=== PATIENT | female | born 1995 | race Caucasian/White ===

== ENCOUNTER 2023-04-17 13:24 | Outpatient (OUT) | payer OTHER, SELFPAY | END 2023-04-17 13:25 | disposition home or self-care (01) | PROVIDERS: PCP Nurse Practitioner; Visit Provider Obstetrics & Gynecology | DX: Z01.818 Encounter for other preprocedural examination (principal); Z30.2 Encounter for sterilization ==

== ENCOUNTER 2023-05-01 07:29 | Day surgery (SDC) | payer OTHER, SELFPAY ==
[2023-04-17 13:54] VITALS: BP 106/67; PULSE 85; RESP 14; TEMP 36.5; O2SAT 98; BMI 30.6
[2023-05-01] VITALS (13 sets, daily range): BP systolic 97–116; BP diastolic 63–87; PULSE 63–92; RESP 10–16; TEMP 36–36.3; O2SAT 88–98; BMI 31.0
[2023-05-01 07:43] LABS: Basophils Percent Auto 0.4 % (0.2-2.0); Eosinophils Absolute Auto 0.5 10^3/uL (0.0-0.7); Eosinophils Percent Auto 4.9 % (0.9-7.0); Hematocrit 40.5 % (36.0-48.0); Hemoglobin 13.2 g/dL (12.0-16.0); Immature Granulocytes Abs Auto 0.02 10^3/uL (0.00-0.03); Immature Granulocytes Pct Auto 0.2 % (0.0-0.5); Lymphocytes Percent Auto 21.8 % (20.5-60.0); Mean Corpuscular HGB Conc 32.6 g/dL (29.9-35.2); Mean Corpuscular Hemoglobin 28.8 pg (26.7-34.0); Mean Corpuscular Volume 88.4 fL (81.0-99.0); Mean Platelet Volume 9.9 fL (9.5-13.5); Monocytes Absolute Auto 0.7 10^3/uL (0.3-0.8); Monocytes Percent Auto 7.5 % (1.7-12.0); Neutrophils Absolute Auto 6.1 10^3/uL (1.4-6.5); Neutrophils Percent Auto 65.2 % (43.0-75.0); Platelet Count 382 10^3/uL (150-450); Red Blood Count 4.58 10^6/uL (4.20-5.40); Red Cell Distribution Width 13.2 % (11.0-15.0); White Blood Count 9.3 10^3/uL (4.0-11.0)
[2023-05-01] MEDS: LACTATED RINGER'S SOLUTION 1,000 ML 50 ML IV (07:55)
[2023-05-01 08:06] LABS: HCG Quantitative <1 mIU/mL
--- NOTE | 2023-05-01 10:42 | PM.ONB ---
Brief Operative Note Date of procedure: 05/01/23 Pre-op diagnosis: desires permenant sterilization Post-op diagnosis: same as pre-op Procedure: NAME OF PROCEDURE: bilateral laparoscopic salpingectomy PROCEDURE: The patient was taken back to the Operating Room where she was given general anesthesia without difficulty. She was then prepped and draped in the normal sterile fashion after being placed in a dorsal lithotomy position. A wet sponge stick was placed into the patient's vagina. Attention was then turned to the patient's abdomen, where a scalpel was used to make a small infraumbilical incision. The S retractors were then used to dissect the underlying layers until the fascia could be seen. The fascia was then grasped with Cindy clamps and tented up. A knife was then used to make a small incision to the fascia. The muscle was identified, at that time two sutures of #0 Vicryl on a GI needle was then used and placed through the fascia. the peritoneum was then identified and entered bluntly. The 10-4 Cece was then placed into the patient's abdomen. This was confirmed with direct visualization of the bowel, using the laparoscope. The patient's abdomen was then insufflated using approximately 4 liters of CO2 gas. Survey of the patient's abdomen demonstrated ovaries were normal in appearance as well as both tubes and uterus. A second and third rt and lt lateral robotic ports which were 8 mm in size, was then placed after the skin incision was made under direct visualization . robotic arms engaged. The patient's tube on the patient's right side was identified and tented up using a grasper, the ligasure apparatus was then used to come across the mesosalpingx from the fimbriated end to the insertion site at the uterus, the tube was then amputated and removed in its entirety. This was done on the contralateral side. The tubes were the removed from the patients abdomen. Excellent hemostasis was noted. The lateral ports were then moved under direct visualization with excellent hemostasis. All instruments were removed from the patient's abdomen. The fascia was closed using the #0 Vicryl on GI needle. The skin was closed using 4-0 Vicryl subcuticularly. All instruments were removed from the patient's vagina as well. The patient was taken out of the dorsal lithotomy position and placed in the supine position and taken to recovery in stable condition. Sponge, lap and needle counts were correct x2. Anesthesia: KAREN Surgeon: Sergey Salinas [employer] Developer: Hillary Ozuna Estimated blood loss (mL): 5 Pathology: other (tubes) Condition: stable Disposition: PACU
[2023-05-01] MEDS: LACTATED RINGER'S SOLUTION 1,000 ML 1000 ML IV (10:44)
[2023-05-01] MEDS: HYDROMORPHONE HCL 0.5 MG/0.5 ML SYRINGE IV ×2 (11:11→11:27)
--- NOTE | 2023-05-01 12:29 | PC.NURSE ---
Patient states pain is more annoying than painful. Patient is able to tolerate discomfort and is waiting to urinate before discharge.
[2023-05-01] MEDS: HYDROCODONE/ACET 5-325 MG TABLET 1 TAB PO (13:40)
--- NOTE | 2023-05-01 13:47 | PC.NURSE ---
Patient urinated at this time and is ready to go home.
== END 2023-05-01 13:45 | disposition home or self-care (01) ==
PROVIDERS: PCP Nurse Practitioner; Visit Provider Obstetrics & Gynecology
PROC: (CPT 840; principal; 2023-05-01 08:45)
DX: Z30.2 Encounter for sterilization (principal)
CPT/HCPCS: 58661; 36415; 84702; 85025; 88302; J1170; J2704

== ENCOUNTER 2024-01-25 16:36 | Emergency (ER) | payer OTHER, SELFPAY ==
[2024-01-25 16:40] VITALS: BP 120/67; PULSE 80; TEMP 37.1; O2SAT 98; BMI 31.1
--- NOTE | 2024-01-25 16:52 | ED.GENADUL1 ---
HPI HPI - General Adult General Chief complaint: Animal Bite Stated complaint: BITE LOWER EXTREMITY Time Seen by Provider: 01/25/24 16:41 Source: patient Mode of arrival: walk-in Limitations: no limitations History of Present Illness HPI narrative: Patient is a 28-year-old female presents to the emergency department for the evaluation of a possible insect bite to the left lower extremity that she noticed 3 days ago at home. She states she has had worsening redness, itching and pain of the area. No medications prior to arrival. She is not concerned for . No fevers, vomiting or abdominal cramping. She states her mother and her wanted her evaluated in the ER to rule out a spider bite. Related Data Home Medications ?Medication ?Instructions ?Recorded ?Confirmed fluoxetine 20 mg capsule 20 mg PO DAILY 04/17/23 04/17/23 levothyroxine 88 mcg capsule 88 mcg PO DAILY 04/17/23 01/25/24 pantoprazole 20 mg tablet,delayed 20 mg PO DAILY 04/17/23 04/17/23 release Previous Rx's ?Medication ?Instructions ?Recorded hydrocodone 5 mg-acetaminophen 325 1 tab PO Q4H PRN pain 4 days #16 05/01/23 mg tablet tabs ibuprofen 800 mg tablet 800 mg PO Q8H PRN pain 14 days #40 05/01/23 tabs cephalexin 500 mg capsule 500 mg PO Q8H 10 days #30 caps 01/25/24 hydroxyzine HCl 25 mg tablet 25 mg PO Q6H PRN itching #20 tabs 01/25/24 prednisone 20 mg tablet 60 mg (3 x 20 mg) PO DAILY 3 days 01/25/24 #9 tabs Allergies Allergy/AdvReac Type Severity Reaction Status Date / Time No Known Drug Allergies Allergy Verified 01/25/24 16:39 Opioid HPI Opioid Management Most Recent Opioid Data: Last Pain Scale 4 05/01/23 13:27 Review of Systems ROS Constitutional Denies: fever or chills Ears, nose, mouth, and throat Denies: throat pain or nasal congestion Respiratory Denies: shortness of breath Gastrointestinal Denies: nausea or vomiting Musculoskeletal Denies: back pain Integumentary/Breast Reports: redness, skin pain and skin tenderness; Denies: rash Hematologic/Lymphatic Denies: easy bruising or easy bleeding [facility] Medical History (Updated 01/25/24 @ 16:48 by MAURA Kramer) History of blood transfusion (2015) ?Z92.89 - Personal history of other medical treatment (ICD-10) Depression ?F32.A - Depression, unspecified (ICD-10) Anxiety ?F41.9 - Anxiety disorder, unspecified (ICD-10) COVID-19 ?U07.1 - COVID-19 (ICD-10) Asthma ?J45.909 - Unspecified asthma, uncomplicated (ICD-10) Migraine ?G43.909 - Migraine, unspecified, not intractable, without status migrainosus (ICD-10) Hiatal hernia ?K44.9 - Diaphragmatic hernia without obstruction or gangrene (ICD-10) Nausea ?R11.0 - Nausea (ICD-10) Vomiting ?R11.10 - Vomiting, unspecified (ICD-10) GERD (gastroesophageal reflux disease) ?K21.9 - Gastro-esophageal reflux disease without esophagitis (ICD-10) Hypothyroidism ?E03.9 - Hypothyroidism, unspecified (ICD-10) Menorrhagia ?N92.0 - Excessive and frequent menstruation with regular cycle (ICD-10) Dyspareunia Request for sterilization ?Z30.2 - Encounter for sterilization (ICD-10) Surgical History (Updated 04/17/23 @ 13:48 by Diane Sanchez NP) History of esophagogastroduodenoscopy (EGD) ?Z98.890 - Other specified postprocedural states (ICD-10) H/O oral surgery ?Z98.890 - Other specified postprocedural states (ICD-10) H/O oral surgery ?Z98.890 - Other specified postprocedural states (ICD-10) Family History (Updated 04/17/23 @ 13:48 by Diane Sanchez NP) Other Family history of DVT Family history of cervical cancer Family history of coronary artery disease Family history of diabetes mellitus Family history of heart disease Family history of hypertension Family history of myocardial infarction Family history of ovarian cancer Social History Within the past year, how often did you have a drink containing alcohol: monthly or less Smoking status: Never smoker Previous occupational history: Teacher aid Highest level of school completed/degree received: high school graduate Exam Narrative Exam Narrative: Gen.: Awake, alert, in no distress Head: Normocephalic, atraumatic ENT: Moist mucous membranes Respiratory: No respiratory distress Extremities: Moves extremities equally, faint blanching erythema on the medial aspect of the left leg with a central indurated area consistent with an insect bite. No fluctuance or abscess. No circumferential erythema or red streaking noted. Psych: Normal mood and affect Neuro: No focal neuro deficit Skin: Warm, dry, intact Constitutional Vital Signs, click to edit/add: Last Vital Signs Temp 98.8 F 01/25/24 16:40 Pulse 80 01/25/24 16:40 Resp 16 01/25/24 16:40 BP 120/67 01/25/24 16:40 Pulse Ox 98 01/25/24 16:40 O2 Del Method Room Air 01/25/24 16:40 Course Vital Signs Vital signs: Vital Signs Temperature 98.8 F 01/25/24 16:40 Pulse Rate 80 01/25/24 16:40 Respiratory Rate 16 01/25/24 16:40 Blood Pressure 120/67 01/25/24 16:40 Pulse Oximetry 98 01/25/24 16:40 Oxygen Delivery Method Room Air 01/25/24 16:40 Temperature 98.8 F 01/25/24 16:40 Pulse Rate 80 01/25/24 16:40 Respiratory Rate 16 01/25/24 16:40 Blood Pressure 120/67 01/25/24 16:40 Pulse Oximetry 98 01/25/24 16:40 Oxygen Delivery Method Room Air 01/25/24 16:40 Medical Decision Making [facility] Narrative Medical decision making narrative: Exam is consistent with a localized allergic reaction from an insect sting, although the patient states the redness is worsening so we will cover with Keflex as well as prednisone and hydroxyzine. Follow-up PCP and return to the ER if symptoms change or worsen SUPERVISED APC VISIT, PHYSICIAN ATTESTATION: Based on the medical record the care appears appropriate. ? Medical Records Medical records reviewed: Yes I reviewed the patient's medical records Discharge Plan Discharge Stand Alone Forms: Portal Instructions Chief Complaint: Animal Bite Clinical Impression: Insect bite Patient Disposition: Home, Self-Care Time of Disposition Decision: 16:48 Condition: Good Prescriptions / Home Meds: New prednisone 20 mg tablet 60 mg PO DAILY 3 Days Qty: 9 0RF cephalexin 500 mg capsule 500 mg PO Q8H 10 Days Qty: 30 0RF hydroxyzine HCl 25 mg tablet 25 mg PO Q6H PRN (Reason: itching) Qty: 20 0RF No Action fluoxetine 20 mg capsule 20 mg PO DAILY levothyroxine 88 mcg capsule 88 mcg PO DAILY pantoprazole 20 mg tablet,delayed release (DR/EC) 20 mg PO DAILY ibuprofen 800 mg tablet 800 mg PO Q8H PRN (Reason: pain) 14 Days Qty: 40 0RF hydrocodone-acetaminophen 5-325 mg tablet 1 tab PO Q4H PRN (Reason: pain) 4 Days Qty: 16 0RF Print Language: Yoruba Instructions: Insect Bite or Sting (ED) Referrals: TORITO BRYSON [Primary Care Provider] - 1 week
--- OUTSIDE RECORDS SUMMARY | 2024-01-25 17:00 | XMS_ITS | CCD ---
Author Organization [facility] Care Team Providers Care Prepleater Name Role Phone CHRISTOPHER Villa-BC Shonda Baird Emergency Provider JOSEPH Wagner Primary Care Provider Torito Wagner Primary Care Unavailable Shonda Villa Attending Unavailable Shonda Villa Admitting Unavailable TORITO WAGNER Primary Care Unavailable CLARI ., DR YOUNG Admitting Unavailable HAY ., DR YOUNG Attending Unavailable JENNIFER ., MAURA CARDENAS Consulting Unavailangel MONTAGUE ., DR YOUNG Consulting Unavailable TORITO WAGNER Primary Care Unavailable DARA ERNST Admitting Unavailable DARA ERNST Attending Unavailable DARA ERNST Consulting Unavailable TORITO WAGNER Primary Care Unavailable CLAUDIA AYALA Admitting Unavailable CLAUDIA AYALA Attending Unavailable PAY ., DR HARRIS Consulting Unavailable CLAUDIA AYALA Consulting Unavailable Medications Current Medications Medication Drug Class(es) Dates Sig (Normalized) Sig (Original) famotidine 40 mg oral tablet (1 source) Histamine-2 Receptor Antagonist Start: 10-31-2022 take 40 mg by mouth twice daily Famotidine Active 40 MG PO Twice daily October 31, 2022 12:00am promethazine hydrochloride 25 mg oral tablet (1 source) Phenothiazine Start: 10-31-2022 take 25 mg by mouth every six hours Promethazine Active 25 MG PO Q6H October 31, 2022 12:00am Problems Active Problems Problem Classification Problem Date Documented Date Episodic/Chronic Abdominal pain (1 source) Epigastric pain; Translations: [EPIGASTRIC PAIN] Onset: 11-04-2022 Episodic Contraceptive and procreative management (1 source) Presence of (intrauterine) contraceptive device; Translations: [PRESENCE IU CONTRACEPT DEVICE] Onset: 11-04-2022 Episodic Headache; including migraine (4 sources) Headache; including migraine; Translations: [HEADACHE UNSPECIFIED] Onset: 04-15-2022 Menopausal disorders (1 source) Hormone replacement therapy; Translations: [HORMONE REPLACEMENT THERAPY] Onset: 11-04-2022 Episodic Nausea and vomiting (5 sources) Nausea and vomiting; Translations: [Nausea with vomiting, unspecified] Onset: 10-31-2022 10-31-2022 Episodic Other aftercare (1 source) Other fpc (current) drug therapy; Translations: [OTH TOOLING ENGINEERING TECH CURRENT DRUG THERAPY] Onset: 11-04-2022 Episodic Residual codes; unclassified (1 source) Personal history of other specified conditions; Translations: [PERSONAL HISTORY OTH SPEC CONDITION] Onset: 11-04-2022 Episodic Substance-related disorders (1 source) Nicotine dependence, other tobacco product, uncomplicated; Translations: [NICOTINE DEPEND OTH TOB PROD UNCOMP] Onset: 11-04-2022 Chronic Unclassified (3 sources) LOW BACK PAIN, UNSPECIFIED; Translations: [LOW BACK PAIN, UNSPECIFIED] Onset: 07-02-2022 Unclassified (1 source) CONTACT W/AND (SUSP) EXPOS COVID-19; Translations: [CONTACT W/AND (SUSP) EXPOS COVID-19] Onset: 04-17-2022 Past or Other Problems Problem Classification Problem Date Documented Da te Episodic/Chronic Other upper respiratory infections (1 source) Acute upper respiratory infection, unspecified; Translations: [ACUTE UP RESPIRATORY INFECTION UNS] Onset: 04-17-2022 Episodic Unclassified (1 source) LOW BACK PAIN, UNSPECIFIED; Translations: [LOW BACK PAIN, UNSPECIFIED] Onset: 06-30-2022 Results Test Name Value Interpretation Reference Range Facility Alanine aminotransferase [En zymatic activity/volume] in Serum or PlasmaOrdered By: Shonda Villa on 10-31-2022 ALT [Catalytic activity/Vol] 12 U/L 7-52 [facility] Albumin [Mass/volume] in Ser um or Plasma by Bromocresol green (BCG) dye binding methoOrdered By: Shonda Villa on 10-31-2022 Albumin BCG dye [Mass/Vol] 4.8 g/dL 3.5-5.7 [facility] Alkaline phosphatase [Enzyma tic activity/volume] in Serum or PlasmaOrdered By: Shonda Waldronore on 10-31-2022 ALP [Catalytic activity/Vol] 62 U/L 34-104 [facility] Amphetamine Screen Ql (U)Ord ered By: Shonda Smithimore on 10-31-2022 Amphetamines Ql (U) Negative Negative [facility] Aspartate aminotransferase [ Enzymatic activity/volume] in Serum or PlasmaOrdered By: Shonda Bullimore on 10-31-2022 AST [Catalytic activity/Vol] 18 U/L 13-39 [facility] Automated epithelial cells c ount in urine sediment (number/area)Ordered By: Shonda Waldronore on 10-31-2022 Epithelial cells Auto (Urine sed) [#/Area] 5-9 [HPF] 0-2 [facility] Automated erythrocytes count in urine sediment (number/area)Ordered By: Shonda Waldronore on 10-31-2022 RBC Auto (Urine sed) [#/Area] None seen [HPF] 0-4 [facility] Automated leukocytes count i n urine sediment (number/area)Ordered By: Shonda Smithimore on 10-31-2022 WBC Auto (Urine sed) [#/Area] 1-2 [HPF] 0-4 [facility] Automated urine hyaline cast s count (number/volume)Ordered By: Shonda Waldronore on 10-31-2022 Hyaline casts Auto (U) [#/Vol] None seen [LPF] 0-1 [facility] Barbiturates [Presence] in U rine by Screen methodOrdered By: Shonda Bullimore on 10-31-2022 Barbiturates Screen Ql (U) Negative Negative [facility] Basophils Auto (Bld) [#/Vol] Ordered By: Shonda Waldronore on 10-31-2022 Basophils (Bld) [#/Vol] 0.0 10*3/uL 0.0-0.2 [facility] Basophils/100 WBC Auto (Bld) Ordered By: Shondaedin Simthimore on 10-31-2022 Basophils/100 WBC (Bld) 0.3 % . [facility] Benzodiazepines Screen Ql (U )Ordered By: Shonda Bullimore on 10-31-2022 Benzodiazepines Ql (U) Negative Negative [facility] Benzoylecgonine [Presence] i n Urine by Screen methodOrdered By: Shonda Bullimore on 10-31-2022 Benzoylecgonine Screen Ql (U) Negative Negative [facility] Bilirubin Test strip Ql (U)O rdered By: Shonda Smithimore on 10-31-2022 Bilirubin Ql (U) Negative Negative [facility] Bilirubin.total [Mass/volume ] in Serum or PlasmaOrdered By: Shonda Smithimore on 10-31-2022 Bilirubin [Mass/Vol] 0.6 mg/dL 0.3-1.0 [facility] CBC AUTO DIFFon 10-31-2022 BASO # 0.0 103/ul Normal 0.0-0.1 [facility] Comment on above: Performed By: #### C BC #### [facility] [address] [place] [address] Dr. Sirisha Ashraf Basophils/100 WBC (Bld) 0.4 % Normal 0.2-2.0 [facility] Comment on above: Performed By: #### C BC #### [facility] [address] [place] [address] Dr. Sirisha Ashraf EO # 0.2 103/ul Normal 0.0-0.7 [facility] Comment on above: Performed By: #### C BC #### [facility] [address] [address] [address] Sirisha Ashraf Eosinophils/100 WBC (Bld) 2.5 % Normal 0.9-7.0 [facility] Comment on above: Performed By: #### C BC #### [facility] [address] [place] [address] Dr. Sirisha Ashraf Erythrocyte distribution width (RBC) [Ratio] 13.4 % Normal 11.0-15.0 [facility] Comment on above: Performed By: #### C BC #### [facility] [address] [place] [address] Dr. Sirisha Ashraf Hematocrit (Bld) [Volume fraction] 44.1 % Normal 36.0-48.0 [facility] Comment on above: Performed By: #### C BC #### [facility] [address] [place] [address] Dr. Sirisha Ashraf Hemoglobin (Bld) [Mass/Vol] 14.2 g/dL Normal 12.0-16.0 [facility] Comment on above: Performed By: #### C BC #### [facility] [address] [place] [address] Dr. Sirisha Ashraf IG # 0.02 10e3/ul Normal 0.00-0.03 [facility] Comment on above: Performed By: #### C BC #### [facility] [address] [place] [address] Dr. Sirisha Ashraf IG % 0.2 % Normal 0.0-0.5 [facility] Comment on above: Performed By: #### C BC #### [facility] [address] [place] [address] Dr. Sirisha Ashraf LYMPH # 1.7 103/ul Normal 1.2-3.8 [facility] Comment on above: Performed By: #### C BC #### [facility] [address] [place] [address] Dr. Sirisha Ashraf Lymphocytes/100 WBC (Bld) 21.2 % Normal 20.5-60.0 [facility] Comment on above: Performed By: #### C BC #### [facility] [address] [place] [address] Dr. Sirisha Ashraf MANUAL DIFF REQ NO Normal [facility] Comment on above: Performed By: #### C BC #### [facility] [address] [place] [address] Dr. Sirisha Ashraf MCH (RBC) [Entitic mass] 28.4 pg Normal 26.7-34.0 [facility] Comment on above: Performed By: #### C BC #### [facility] [address] [place] [address] Dr. Sirisha Ashraf MCHC (RBC) [Mass/Vol] 32.2 g/dL Normal 29.9-35.2 [facility] Comment on above: Performed By: #### C BC #### [facility] [address] [address] [address] Sirisha Ashraf MCV (RBC) [Entitic vol] 88.2 fL Normal 81.0-99.0 [facility] Comment on above: Performed By: #### C BC #### [facility] [address] [address] [address] Sirisha Ashraf MONO # 0.6 103/ul Normal 0.3-0.8 [facility] Comment on above: Performed By: #### C BC #### [facility] [address] [address] [address] Sirisha Ashraf Monocytes/100 WBC (Bld) 7.3 % Normal 1.7-12.0 [facility] Comment on above: Performed By: #### C BC #### [facility] [address] [place] [address] Dr. Sirisha Ashraf NEUT # 5.5 103/ul Normal 1.4-6.5 [facility] Comment on above: Performed By: #### C BC #### [facility] [address] [place] [address] Dr. Sirisha Ashraf Neutrophils/100 WBC (Bld) 68.4 % Normal 43.0-75.0 [facility] Comment on above: Performed By: #### C BC #### [facility] [address] [address] [address] Sirisha Ashraf Platelet mean volume (Bld) [Entitic vol] 10.7 fL Normal 9.5-13.5 [facility] Comment on above: Performed By: #### C BC #### [facility] [address] [address] [address] Sirisha Ashraf PLT 373 103/ul Normal 150-450 [facility] Comment on above: Performed By: #### C BC #### [facility] [address] [address] [address] Sirisha Ashraf RBC 5.00 106/ul Normal 4.20-5.40 [facility] Comment on above: Performed By: #### C BC #### [facility] [address] [place], [place] [address] Dr. Sirisha Ashraf WBC 8.1 103/ul Normal 4.0-11.0 [facility] Comment on above: Performed By: #### C BC #### [facility] [address] [place], [place] [address] abdomen pelvis w conon CT abdomen pelvis w con [facility] [place] [address] [place] [address] CT Scan Report Signed Patient: Jillian Bocanegra MR#: [id number] : 1995 Acct:[id number] Age/Sex: 26 / F ADM Date: 10/31/22 Loc: ER Room: Type: [facility] ER Attending Dr: Copies to: VALENTINE Brown Ordering Provider: VALENTINE Brown Date of Service: 10/31/22 CT/CT abdomen pelvis w con: abd pain cramping vomiting CT ABDOMEN AND PELVIS WITH INTRAVENOUS CONTRAST: CLINICAL HISTORY: Abdominal cramping, nausea and vomiting COMPARISON: None TECHNIQUE: Spiral images were obtained through the abdomen and pelvis following the administration of 90 mL of intravenous Isovue-300. This CT exam was performed using one or more following dose reduction techniques: Automated exposure control, adjustment of the mA and/or kV according to patient size, or use of iterative reconstruction technique. FINDINGS: Limited cuts through the lung bases show a 9 mm left lower lobe. A small hiatal hernia is seen. The liver, spleen, pancreas and adrenal glands are unremarkable. No gallstones are identified. There are bilateral symmetric renal nephrograms with no evidence of hydronephrosis. There is no pathologic lymphadenopathy or ascites. There is a small umbilical hernia containing fat. There is No focal segmental small bowel dilatation or wall thickening is seen. There is mild stool at the ascending colon. The transverse and descending colon are under distended and there is apparent wall thickening. The bony structures are intact. Images through the pelvis show normal caliber small bowel loops. The distal colon is decompressed. No diverticular disease is seen. A normal appendix is visualized. There is a T-shaped IUD within the uterus. There are small ovarian follicles. There is no lymphadenopathy or free fluid. CT/CT abdomen pelvis w con IMPRESSION: INCIDENTAL LEFT LOWER LOBE PULMONARY NODULE. NO BOWEL OR URINARY TRACT OBSTRUCTION. NO ACUTE FINDINGS. Impression dictated by: Michelle Fleming M.D.10/31/2022 5:51 PM Dictation Location: [place] [address] Transcribed By: [facility] 10/31/221750 Dictated By: Michelle Fleming MD 10/31/221733 Signed By: 10/31/22 175 Normal [facility] Calcium [Mass/volume] in Ser um or PlasmaOrdered By: Shonda Villa on 10-31-2022 Calcium [Mass/Vol] 9.3 mg/dL 8.6-10.3 [facility] Cannabinoids [Presence] in U rine by Screen methodOrdered By: Shonda Villa on 10-31-2022 Cannabinoids Screen Ql (U) Positive Negative [facility] Comment on above: These are unconfirme d results and should not be used for legal purposes. Drug Cut-Off Concentration: AMPH 1000 ng/mL TITUS 200 ng/mL OLIVIA 200 ng/mL COCM 300 ng/mL OP 300 ng/mL PCP 25 ng/mL THC 20 ng/mL Carbon dioxide, total [Moles /volume] in Serum or PlasmaOrdered By: Shonda Villa on 10-31-2022 CO2 [Moles/Vol] 24.0 mmol/L 21.0-31.0 [facility] Chloride [Moles/volume] in S ben[place] or PlasmaOrdered By: Shonda Villa on 10-31-2022 Chloride [Moles/Vol] 105 mmol/L 98-107 [facility] Choriogonadotropin.beta subu nit [Units/volume] in Serum or PlasmaOrdered By: Shonda Villa on 10-31-2022 HCG.beta subunit Qn Negative [facility] Color Auto (U)Ordered By: Gi xavier Villa on 10-31-2022 Color (U) Yellow Yellow [facility] Complete Blood Count Auto Di ffon 10-31-2022 Basophils (Bld) [#/Vol] 0.0 10*3/uL Normal 0.0-0.2 [facility] Comment on above: Result Comment: PERF ORMED BY: [place] [address] PATHOLOGIST [facility] MELVI STRONG M.D. Performed By: #### C MP, CBC #### [facility] [address] [place] [address] Basophils/100 WBC (Bld) 0.3 % Normal . [facility] Comment on above: Performed By: #### C MP, CBC #### [facility] [address] [place] [address] Eosinophils (Bld) [#/Vol] 0.0 10*3/uL Normal 0.0-0.45 [facility] Comment on above: Performed By: #### C MP, CBC #### [address] Eosinophils/100 WBC (Bld) 0.0 % Normal . [facility] Comment on above: Performed By: #### C MP, CBC #### [address] Erythrocyte distribution width (RBC) [Ratio] 13.4 % Normal 11.9-15.3 [facility] Comment on above: Performed By: #### C MP, CBC #### [address] Hematocrit (Bld) [Volume fraction] 39.1 % Normal 34.0-46.4 [facility] Comment on above: Performed By: #### C MP, CBC #### [place] [address] [place] Hemoglobin (Bld) [Mass/Vol] 12.8 g/dL Normal 11.8-15.4 [facility] Comment on above: Performed By: #### C MP, CBC #### [facility] [address] [place] [address] [place] Lymphocytes (Bld) [#/Vol] 0.9 10*3/uL Low 1.00-4.8 [facility] Comment on above: Performed By: #### C MP, CBC #### [place] [address] [place] Lymphocytes/100 WBC (Bld) 6.3 % Normal . [facility] Comment on above: Performed By: #### C MP, CBC #### [address] MCH (RBC) [Entitic mass] 28.1 pg Normal 24.7-34.3 [facility] Comment on above: Performed By: #### C MP, CBC #### [address] MCV (RBC) [Entitic vol] 85.6 fL Normal 80-100 [facility] Comment on above: Performed By: #### C MP, CBC #### [address] Mean Corpuscular HGB Conc 32.8 g/dL Normal 32.0-35.0 [facility] Comment on above: Performed By: #### C MP, CBC #### [place] [address] [place] Monocytes (Bld) [#/Vol] 0.4 10*3/uL Normal 0.0-0.8 [facility] Comment on above: Performed By: #### C MP, CBC #### [address] Monocytes/100 WBC (Bld) 16.94 % Normal 0.00-20.00 [facility] Comment on above: Performed By: #### C MP, CBC #### [place] [address] [place] Monocytes/100 WBC (Bld) 2.7 % Normal . [facility] Comment on above: Performed By: #### C MP, CBC #### [address] Neutrophils (Bld) [#/Vol] 13.0 10*3/uL High 1.8-7.7 [facility] Comment on above: Performed By: #### C MP, CBC #### [address] [place] [address] [place] Neutrophils/100 WBC (Bld) 90.7 % Normal . [facility] Comment on above: Performed By: #### C MP, CBC #### [facility] [address] NRBC% 0.0 /100{WBC} Normal 0-0.5 [facility] Comment on above: Performed By: #### C MP, CBC #### [address] Platelet mean volume (Bld) [Entitic vol] 8.8 fL Normal 6.3-10.7 [facility] Comment on above: Performed By: #### C MP, CBC #### [address] Platelets (Bld) [#/Vol] 341 10*3/uL Normal 150-450 [facility] Comment on above: Performed By: #### C MP, CBC #### [address] RBC (Bld) [#/Vol] 4.56 10*6/uL Normal 3.60-5.00 [facility] Comment on above: Performed By: #### C MP, CBC #### [address] WBC (Bld) [#/Vol] 14.4 10*3/uL High 3.8-11.6 [facility] Comment on above: Performed By: #### C MP, CBC #### [address] Comprehensive Metabolic Pane marcelino 10-31-2022 Albumin [Mass/Vol] 4.8 g/dL Normal 3.5-5.7 [facility] Comment on above: Performed By: #### C MP, CBC #### [address] Albumin/Globulin [Mass ratio] 1.5 {ratio} Normal [facility] Comment on above: Performed By: #### C MP, CBC #### [facility] [address] ALP [Catalytic activity/Vol] 62 U/L Normal 34-104 [facility] Comment on above: Performed By: #### C MP, CBC #### [facility] [address] ALT [Catalytic activity/Vol] 12 U/L Normal 7-52 [facility] Comment on above: Performed By: #### C MP, CBC #### [address] Anion gap [Moles/Vol] 14.8 mmol/L Normal 6.0-15.0 [facility] Comment on above: Performed By: #### C MP, CBC #### [address] AST [Catalytic activity/Vol] 18 U/L Normal 13-39 [facility] Comment on above: Performed By: #### C MP, CBC #### [address] Bilirubin [Mass/Vol] 0.6 mg/dL Normal 0.3-1.0 [facility] Comment on above: Performed By: #### C MP, CBC #### [address] Calcium [Mass/Vol] 9.3 mg/dL Normal 8.6-10.3 [facility] Comment on above: Performed By: #### C MP, CBC #### [address] Chloride [Moles/Vol] 105 mmol/L Normal 98-107 [facility] Comment on above: Performed By: #### C MP, CBC #### [address] CO2 [Moles/Vol] 24.0 mmol/L Normal 21.0-31.0 [facility] Comment on above: Performed By: #### C MP, CBC #### [address] Creatinine [Mass/Vol] 0.75 mg/dL Normal 0.60-1.20 [facility] Comment on above: Performed By: #### C MP, CBC #### [facility] [address] [place] [address] [place] Creatinine Clr Calc Pharmacy 110.19 Normal [facility] Comment on above: Result Comment: PERF ORMED BY: [facility] [address] [place] [address] PATHOLOGIST [facility] MELVI STRONG M.D. Performed By: #### C MP, CBC #### [facility] [address] [place] [address] [place] GFR/1.73 sq M.predicted MDRD (S/P/Bld) [Vol rate/Area] mL/min/{1.73_m2} Normal [facility] Comment on above: Performed By: #### C MP, CBC #### [facility] [address] Globulin (S) [Mass/Vol] 3.3 g/dL Normal [facility] Comment on above: Performed By: #### C MP, CBC #### [facility] [address] Glucose [Mass/Vol] 113 mg/dL High 70-100 [facility] Comment on above: Result Comment: [facility] Glucose Reference Range is dependent on time and content of last meal. Glucose of more than 200 mg/dL in a nonstressed, ambulatory subject supports the diagnosis of Diabetes Mellitus. ADA recommended reference range Performed By: #### C MP, CBC #### [facility] [address] Potassium [Moles/Vol] 3.8 mmol/L Normal 3.5-5.1 [facility] Comment on above: Performed By: #### C MP, CBC #### [facility] [address] Protein [Mass/Vol] 8.1 g/dL Normal 6.4-8.9 [facility] Comment on above: Performed By: #### C MP, CBC #### [facility] [address] [place] [address] [place] Sodium [Moles/Vol] 140 mmol/L Normal 136-145 [facility] Comment on above: Performed By: #### C MP, CBC #### [facility] [address] Urea nitrogen [Mass/Vol] 8 mg/dL Normal 7-25 [facility] Comment on above: Performed By: #### C MP, CBC #### [facility] [address] Creatinine [Mass/volume] in Serum or PlasmaOrdered By: Shonda Villa on 10-31-2022 Creatinine [Mass/Vol] 0.75 mg/dL 0.60-1.20 [facility] Dipstick and Microscopicon 0 10-31-2022 Appearance (U) Clear Normal Clear [facility] Comment on above: Order Comment: Name Collection Type:: Voided Performed By: #### A DDONUAPLUS, UHCG, URDS #### [address] Bacteria,Urine 1+ High None Seen [facility] Comment on above: Order Comment: Name Collection Type:: Voided Performed By: #### A DDONUAPLUS, UHCG, URDS #### [place] [address] [place] Bilirubin,Urine Negative Normal Negative [facility] Comment on above: Order Comment: Name Collection Type:: Voided Performed By: #### A DDONUAPLUS, UHCG, URDS #### [facility] [address] [place] [address] [place] Color (U) Yellow Normal Yellow [facility] Comment on above: Order Comment: Name Collection Type:: Voided Performed By: #### A DDONUAPLUS, UHCG, URDS #### [facility] [address] [place] [address] [place] Glucose Ql (U) Normal Normal Normal [facility] Comment on above: Order Comment: Name Collection Type:: Voided Performed By: #### A DDONUAPLUS, UHCG, URDS #### [facility] [address] [place] [address] Hyaline Casts,Urine None Seen Normal 0-1 [facility] Comment on above: Order Comment: Name Collection Type:: Voided Performed By: #### A DDONUAPLUS, UHCG, URDS #### [facility] [address] [place] [address] Ketones Ql (U) 4+ High Negative [facility] Comment on above: Order Comment: Name Collection Type:: Voided Performed By: #### A DDONUAPLUS, UHCG, URDS #### [address] Leukocyte esterase Test strip Ql (U) 1+ High Negative [facility] Comment on above: Order Comment: Name Collection Type:: Voided Performed By: #### A DDONUAPLUS, UHCG, URDS #### [address] Mucus,Urine 2+ Critically abnormal [facility] Comment on above: Order Comment: Name Collection Type:: Voided Performed By: #### A DDONUAPLUS, UHCG, URDS #### [address] Nitrite,Urine Negative Normal Negative [facility] Comment on above: Order Comment: Name Collection Type:: Voided Performed By: #### A DDONUAPLUS, UHCG, URDS #### [facility] [address] [place] [address] Occult Blood,Urine Negative Normal Negative [facility] Comment on above: Order Comment: Name Collection Type:: Voided Performed By: #### A DDONUAPLUS, UHCG, URDS #### [address] pH (U) 8.0 [pH] Normal 5.0-9.0 [facility] Comment on above: Order Comment: Name Collection Type:: Voided Performed By: #### A DDONUAPLUS, UHCG, URDS #### [address] [place] [address] [place] Protein (U) [Mass/Vol] 30 mg/dL High Negative [facility] Comment on above: Order Comment: Name Collection Type:: Voided Performed By: #### A DDONUAPLUS, UHCG, URDS #### [address] RBC,Urine None Seen Normal 0-4 [facility] Comment on above: Order Comment: Name Collection Type:: Voided Performed By: #### A DDONUAPLUS, UHCG, URDS #### [address] Renal Epithelial Cells,Urine None Seen Normal 0-1 [facility] Comment on above: Order Comment: Name Collection Type:: Voided Performed By: #### A DDONUAPLUS, UHCG, URDS #### [address] Specificy Bruno,Urine 1.030 Normal 1.001-1.030 [facility] Comment on above: Order Comment: Name Collection Type:: Voided Performed By: #### A DDONUAPLUS, UHCG, URDS #### [address] Squamous Epithelial Cell,Urine 5-9 High 0-2 [facility] Comment on above: Order Comment: Name Collection Type:: Voided Performed By: #### A DDONUAPLUS, UHCG, URDS #### [address] Urobilinogen,Urine Normal Normal Normal [facility] Comment on above: Order Comment: Name Collection Type:: Voided Performed By: #### A DDONUAPLUS, UHCG, URDS #### [address] WBC,Urine 1-2 Normal 0-4 [facility] Comment on above: Order Comment: Name Collection Type:: Voided Performed By: #### A DDONUAPLUS, UHCG, URDS #### [address] [place] [address] [place] Drug Screen,Urineon 11-01-19 Amphetamine Screen,Urine Negative Normal Negative [facility] Comment on above: Performed By: #### A DDONUAPLUS, UHCG, URDS #### [place] [address] [place] Barbiturate Screen,Urine Negative Normal Negative [facility] Comment on above: Performed By: #### A DDONUAPLUS, UHCG, URDS #### [place] [address] [place] Benzodiazepines Screen,Urine Negative Normal Negative [facility] Comment on above: Performed By: #### A DDONUAPLUS, UHCG, URDS #### [address] Cannabinoid Screen,Urine Positive High Negative [facility] Comment on above: Result Comment: Thes e are unconfirmed results and should not be used for legal purposes. Drug Cut-Off Concentration: AMPH 1000 ng/mL TITUS 200 ng/mL OLIVIA 200 ng/mL COCM 300 ng/mL OP 300 ng/mL PCP 25 ng/mL THC 20 ng/mL PERFORMED BY: [place] [address] PATHOLOGIST [facility] MELVI STRONG M.D. Performed By: #### A DDONUAPLUS, UHCG, URDS #### [place] [address] [place] Cocaine Screen,Urine Negative Normal Negative [facility] Comment on above: Performed By: #### A DDONUAPLUS, UHCG, URDS #### [place] [address] [place] Opiate Screen,Urine Negative Normal Negative [facility] Comment on above: Performed By: #### A DDONUAPLUS, UHCG, URDS #### [place] [address] [place] Phencyclidine Screen,Urine Negative Normal Negative [facility] Comment on above: Performed By: #### A DDONUAPLUS, UHCG, URDS #### [facility] [address] Eosinophils Auto (Bld) [#/Vo l]Ordered By: Shonda Allen on 10-31-2022 Eosinophils (Bld) [#/Vol] 0.0 10*3/uL 0.0-0.45 [facility] Eosinophils/100 WBC Auto (Bl d)Ordered By: Shondaedin Waldronore on 10-31-2022 Eosinophils/100 WBC (Bld) 0.0 % . [facility] Erythrocyte distribution wid th Auto (RBC) [Ratio]Ordered By: [facility] on 10-31-2022 Erythrocyte distribution width (RBC) [Ratio] 13.4 % 11.9-15.3 [facility] Globulin Calc (S) [Mass/Vol] Ordered By: [facility] on 10-31-2022 Globulin (S) [Mass/Vol] 3.3 g/dL [facility] Glucose [Mass/volume] in Ser um or PlasmaOrdered By: [facility] on 10-31-2022 Glucose [Mass/Vol] 113 mg/dL 70-100 [facility] Comment on above: ADA recommended refe rence rangeRandom Glucose Reference Range is dependent on time and content of last meal. Glucose of more than 200 mg/dL in a nonstressed, ambulatory subject supports the diagnosis of Diabetes Mellitus. HCG ( test) IA.rapi d Ql (U)Ordered By: [facility] on 10-31-2022 HCG ( test) Ql (U) Negative [facility] HCG,Qualitative Serumon 10-12 HCG,Qualitative Serum Negative Normal [facility] Comment on above: Result Comment: PERF ORMED BY: [place] [address] PATHOLOGIST [facility] MELVI STRONG M.D. Performed By: #### H CGQUAL #### [facility] [address] HCG,Urineon 10-31-2022 Beta HCG ( test) Ql (U) Negative Normal [facility] Comment on above: Order Comment: Name Collection Type:: Voided Result Comment: PERF ORMED BY: [facility] [address] [place] [address] PATHOLOGIST [facility] MELVI STRONG M.D. Performed By: #### A PATRICIA, CG, URDS #### [facility] [address] Hematocrit Auto (Bld) [Volum e fraction]Ordered By: Shonda Bullimore on 10-31-2022 Hematocrit (Bld) [Volume fraction] 39.1 % 34.0-46.4 [facility] Hemoglobin [Mass/volume] in BloodOrdered By: Shonda Bullimore on 10-31-2022 Hemoglobin (Bld) [Mass/Vol] 12.8 g/dL 11.8-15.4 [facility] Ketones Auto test strip (U) [Mass/Vol]Ordered By: Shonda Bullimore on 10-31-2022 Ketones (U) [Mass/Vol] 4+ Negative [facility] LIPASEon 10-31-2022 Lipase [Catalytic activity/Vol] 118.0 U/L Normal 73.0-393.0 [facility] Comment on above: Performed By: #### C MP, LIPA #### [facility] [address] [place] [address] Dr. Sirisha Ashraf Leukocytes [#/volume] correc maite for nucleated erythrocytes in Blood by Automated counOrdered By: Shonda Bullimore on 10-31-2022 WBC corrected for nucl RBC Auto (Bld) [#/Vol] 14.4 10*3/uL 3.8-11.6 [facility] Lymphocytes Auto (Bld) [#/Vo l]Ordered By: Shonda Bullimore on 10-31-2022 Lymphocytes (Bld) [#/Vol] 0.9 10*3/uL 1.00-4.8 [facility] Lymphocytes/100 WBC Auto (Bl d)Ordered By: Shonda Bullimore on 10-31-2022 Lymphocytes/100 WBC (Bld) 6.3 % . [facility] MCH Auto (RBC) [Entitic mass ]Ordered By: Shonda Bullimore on 10-31-2022 MCH (RBC) [Entitic mass] 28.1 pg 24.7-34.3 [facility] MCHC Auto (RBC) [Mass/Vol]Or dered By: Shonda Bullimore on 10-31-2022 MCHC (RBC) [Mass/Vol] 32.8 g/dL 32.0-35.0 [facility] MCV Auto (RBC) [Entitic vol] Ordered By: Shonda Bullimore on 10-31-2022 MCV (RBC) [Entitic vol] 85.6 fL 80-100 [facility] Monocyte distribution width [Entitic volume] in Blood by AutomatedOrdered By: Shonda Smithimore on 10-31-2022 Monocyte distribution width Auto (Bld) [Entitic vol] 16.94 % 0.00-20.00 [facility] Monocytes Auto (Bld) [#/Vol] Ordered By: Shonda Smithimore on 10-31-2022 Monocytes (Bld) [#/Vol] 0.4 10*3/uL 0.0-0.8 [facility] Monocytes/100 WBC Auto (Bld) Ordered By: Shonda Bullimore on 10-31-2022 Monocytes/100 WBC (Bld) 2.7 % . [facility] Mucus LM Ql (Urine sed)Order ed By: Shonda Bullimore on 10-31-2022 Mucus Ql (Urine sed) 2+ [LPF] [facility] Neutrophils Auto (Bld) [#/Vo l]Ordered By: Shonda Bullimore on 10-31-2022 Neutrophils (Bld) [#/Vol] 13.0 10*3/uL 1.8-7.7 [facility] Neutrophils/100 WBC Auto (Bl d)Ordered By: Shondaedin Smithimore on 10-31-2022 Neutrophils/100 WBC (Bld) 90.7 % . [facility] Nitrite Test strip Ql (U)Ord ered By: Shonda Villa on 10-31-2022 Nitrite Ql (U) Negative Negative [facility] No Panel InformationOrdered By: Shonda Smithimevelina on 10-31-2022 Estimated GFR (CKD-EPI) > 60.0 mL/Min [facility] Creatinine Clearance (Chem 110.19 [facility] Nucleated erythrocytes [Pres ence] in Blood by Automated countOrdered By: Shonda Villa on 10-31-2022 Nucleated RBC Auto Ql (Bld) 0.0 /100{WBC} 0-0.5 [facility] Opiates [Presence] in Urine by Screen methodOrdered By: Shonda Villa on 10-31-2022 Opiates Screen Ql (U) Negative Negative [facility] PROF 14(COMP METB)on 023 Albumin [Mass/Vol] 4.4 g/dL Normal 3.4-5.0 [facility] Comment on above: Performed By: #### C MP, LIPA #### [facility] [address] [place] [address] Dr. Sirisha Ashraf Albumin/Globulin [Mass ratio] 0.9 {ratio} Normal [facility] Comment on above: Performed By: #### C MP, LIPA #### [facility] [address] [place] [address] Dr. Sirisha Ashraf ALP [Catalytic activity/Vol] 73 U/L Normal 46-116 [facility] Comment on above: Performed By: #### C MP, LIPA #### [facility] [address] [place] [address] Dr. Sirisha Ashraf ALT [Catalytic activity/Vol] 22 U/L Normal 14-59 [facility] Comment on above: Performed By: #### C MP, LIPA #### [facility] [address] [place] [address] Dr. Sirisha Ashraf Anion gap [Moles/Vol] 14.4 mmol/L Normal [facility] Comment on above: Performed By: #### C MP, LIPA #### [facility] [address] [place] [address] Dr. Sirisha Ashraf AST [Catalytic activity/Vol] 16 U/L Normal 15-37 [facility] Comment on above: Performed By: #### C MP, LIPA #### [facility] [address] [place] [address] Dr. Sirisha Ashraf Bilirubin [Mass/Vol] 0.4 mg/dL Normal 0.2-1.0 [facility] Comment on above: Performed By: #### C MP, LIPA #### [facility] [address] [place] [address] Dr. Sirisha Ashraf Calcium [Mass/Vol] 9.4 mg/dL Normal 8.5-10.1 [facility] Comment on above: Performed By: #### C MP, LIPA #### [facility] [address] [place] [address] Dr. Sirisha Ashraf Chloride [Moles/Vol] 104 mmol/L Normal 98-107 [facility] Comment on above: Performed By: #### C MP, LIPA #### [facility] [address] [place] [address] Dr. Sirisha Ashraf CO2 [Moles/Vol] 28.0 mmol/L Normal 21.0-32.[address] [facility] Comment on above: Performed By: #### C MP, LIPA #### [facility] [address] [place] [address] Dr. Sirisha Ashraf Creatinine [Mass/Vol] 0.80 mg/dL Normal 0.55-1.02 [facility] Comment on above: Performed By: #### C MP, LIPA #### [facility] [address] [place] [address] Dr. Sirisha Ashraf EGFR-AF MARSHALLESE >60 Normal >=[address] [facility] Comment on above: Performed By: #### C MP, LIPA #### [facility] [address] [place] [address] Dr. Sirisha Ashraf EGFR-NON AF MARSHALLESE >60 Normal >=60 [facility] Comment on above: Performed By: #### C MP, LIPA #### [facility] [address] [place] [address] Dr. Sirisha Ashraf Globulin (S) [Mass/Vol] 4.7 g/dL Normal [facility] Comment on above: Performed By: #### C MP, LIPA #### [facility] [address] [place] [address] Dr. Sirisha Ashraf Glucose [Mass/Vol] 109 mg/dL Critically high 74-106 [facility] Comment on above: Performed By: #### C MP, LIPA #### [facility] [address] [address] [address] Sirisha Ashraf Potassium [Moles/Vol] 3.4 mmol/L Critically low 3.5-5.1 [facility] Comment on above: Performed By: #### C MP, LIPA #### [facility] [address] [place] [address] Dr. Sirisha Ashraf Protein [Mass/Vol] 9.1 g/dL Critically high 6.4-8.2 [facility] Comment on above: Performed By: #### C ROSY, LIPA #### [facility] [address] [place] [address] Dr. Sirisha Ashraf Sodium [Moles/Vol] 143 mmol/L Normal 136-145 [facility] Comment on above: Performed By: #### C ROSY, LIPA #### [facility] [address] [place] [address] Dr. Sirisha Ashraf Urea nitrogen [Mass/Vol] 9.0 mg/dL Normal 7.0-18.0 [facility] Comment on above: Performed By: #### C ROSY, LIPA #### [facility] [address] [place] [address] Dr. Sirisha Ashraf Urea nitrogen/Creatinine [Mass ratio] 11.2 mg/mg Normal [facility] Comment on above: Performed By: #### C ROSY, LIPA #### [facility] [address] [place] [address] Dr. Sirisha Ashraf Phencyclidine Screen Ql (U)O rdered By: Shonda Villa on 10-31-2022 Phencyclidine Ql (U) Negative Negative [facility] Platelet mean volume Auto (B ld) [Entitic vol]Ordered By: Shonda Villa on 10-31-2022 Platelet mean volume (Bld) [Entitic vol] 8.8 fL 6.3-10.7 [facility] Platelets Auto (Bld) [#/Vol] Ordered By: Shonda Waldronore on 10-31-2022 Platelets (Bld) [#/Vol] 341 10*3/uL 150-450 [facility] Potassium [Moles/volume] in Serum or PlasmaOrdered By: Shonda Bullimore on 10-31-2022 Potassium [Moles/Vol] 3.8 mmol/L 3.5-5.1 [facility] Protein Auto test strip (U) [Mass/Vol]Ordered By: Shonda Bullimore on 10-31-2022 Protein (U) [Mass/Vol] 30 mg/dL Negative [facility] Protein [Mass/volume] in Ser um or PlasmaOrdered By: Shonda Bullimore on 10-31-2022 Protein [Mass/Vol] 8.1 g/dL 6.4-8.9 [facility] RBC Auto (Bld) [#/Vol]Ordere d By: Shonda Bullimore on 10-31-2022 RBC (Bld) [#/Vol] 4.56 10*6/uL 3.60-5.00 [facility] Serum or plasma albumin/glob ulin mass ratioOrdered By: Shonda Bullimore on 10-31-2022 Albumin/Globulin [Mass ratio] 1.5 {ratio} [facility] Serum or plasma anion gap de terminationOrdered By: Shonda Bullimore on 10-31-2022 Anion gap [Moles/Vol] 14.8 mmol/L 6.0-15.0 [facility] Sodium [Moles/volume] in Ser um or PlasmaOrdered By: Shonda Bullimore on 10-31-2022 Sodium [Moles/Vol] 140 mmol/L 136-145 [facility] Specific gravity Auto test s trip (U) [Rel density]Ordered By: Shonda Bullimore on 10-31-2022 Specific gravity (U) [Rel density] 1.030 1.001-1.030 [facility] Urea nitrogen [Mass/volume] in Serum or PlasmaOrdered By: Shonda Bullimore on 10-31-2022 Urea nitrogen [Mass/Vol] 8 mg/dL 7-25 [facility] Urine bacteria detection by automated methodOrdered By: Shonda Villa on 10-31-2022 Bacteria Auto Ql (U) 1+ None Seen [facility] Urine clarity by refractomet ry automatedOrdered By: Shonda Villa on 10-31-2022 Clarity Refractometry automated (U) Clear Clear [facility] Urine glucose measurement by automated test strip (mass/volume)Ordered By: Shonda Villa on 10-31-2022 Glucose Auto test strip (U) [Mass/Vol] Normal mg/dL Normal [facility] Urine hemoglobin detection b y automated test stripOrdered By: Shonda Villa on 10-31-2022 Hemoglobin Auto test strip Ql (U) Negative Negative [facility] Urine leukocyte esterase det ection by automated test stripOrdered By: Shonda Villa on 10-31-2022 Leukocyte esterase Auto test strip Ql (U) 1+ Negative [facility] Urine sediment renal epithel ial cell count by microscopy (number/high power field)Ordered By: Shonda Villa on 10-31-2022 Epithelial cells.renal LM.HPF (Urine sed) [#/Area] None seen [HPF] 0-1 [facility] Urobilinogen Auto test strip (U) [Mass/Vol]Ordered By: Shonda Villa on 10-31-2022 Urobilinogen (U) [Mass/Vol] Normal mg/dL Normal [facility] WBC Auto (Bld) [#/Vol]Ordere d By: Shonda Villa on 10-31-2022 WBC (Bld) [#/Vol] 14.4 10*3/uL 3.8-11.6 [facility] pH Auto test strip (U)Ordere d By: Shonda Villa on 10-31-2022 pH (U) 8.0 [pH] 5.0-9.0 [facility] ER URINE PROFILEon 2 Bilirubin Ql (U) Negative Normal NEGATIVE [facility] Comment on above: Performed By: #### E RUR PREGU #### [facility] [address] [place] [address] Dr. Sirisha Ashraf Clarity (U) CLEAR Normal CLEAR [facility] Comment on above: Performed By: #### E RUR, PREGU #### [facility] [address] [place] [address] Dr. Sirisha Ashraf Color (U) LT. YELLOW Normal YELLOW [facility] Comment on above: Performed By: #### E RUR, PREGU #### [facility] [address] [place] [address] Dr. Sirisha Ashraf ERUAHD A micrscopic examination will be performed if indicated. Normal [facility] Comment on above: Performed By: #### E RUR, PREGU #### [facility] [address] [place] [address] Dr. Sirisha Ashraf Glucose Ql (U) Negative Normal NEGATIVE [facility] Comment on above: Performed By: #### E RUR, PREGU #### [facility] [address] [place] [address] Dr. Sirisha Ashraf Hemoglobin Ql (U) Negative Normal NEGATIVE [facility] Comment on above: Performed By: #### E RUR, PREGU #### [facility] [address] [place] [address] Dr. Sirisha Ashraf Ketones Ql (U) Negative Normal NEGATIVE [facility] Comment on above: Performed By: #### E RUR, PREGU #### [facility] [address] [place] [address] Dr. Sirisha Ashraf LEUKOCYTES Negative Normal NEGATIVE [facility] Comment on above: Performed By: #### E RUR, PREGU #### [facility] [address] [place] [address] Dr. Sirisha Ashraf Nitrite Ql (U) Negative Normal NEGATIVE [facility] Comment on above: Performed By: #### E RUR, PREGU #### [facility] [address] [place] [address] Dr. Sirisha Ashraf pH (U) 7.5 [pH] Normal 5-9 [facility] Comment on above: Performed By: #### E RUR, PREGU #### [facility] [address] [place] [address] Dr. Sirisha Ashraf SPEC GRAVITY 1.020 Normal 1.005-<=1.02 5 [facility] Comment on above: Performed By: #### E RUR, PREGU #### [facility] [address] [place] [address] Dr. Sirisha Ashraf UA PROTEIN Negative Normal NEGATIVE/ TRACE [facility] Comment on above: Performed By: #### E RUR, PREGU #### [facility] [address] [place] [address] Dr. Sirisha Ashraf UR MICRO IND NOT INDICATED Normal [facility] Comment on above: Performed By: #### E RUR, PREGU #### [facility] [address] [place] [address] Dr. Sirisha Ashraf Urobilinogen Qn (U) 0.2 {Adryan'U}/dL Normal 0.2 - 1. 0 [facility] Comment on above: Performed By: #### E RUR, PREGU #### [facility] [address] [place] [address] Dr. Sirisha Ashraf URon 06-30-2022 , QUAL Negative Normal NEGATIVE [facility] Comment on above: Performed By: #### E RUR, PREGU #### [facility] [address] [place] [address] Dr. Sirisha Ashraf Covid-19 PCR ([facility])on SARS-CoV-2 (COVID-19) RNA YAKELIN+probe Ql (Unsp spec) Not detected Normal NOT DETECTED [facility] Comment on above: Result Comment: When diagnostic testing is negative, the possibility of a false negative should be considered in the context of a patient's recent exposures and the presence of clinical signs and symptoms consistent with SARS-CoV-2. This test is not yet approved or cleared by the [place] FDA. When there are no FDA-approved or cleared tests available, and other criteria are met, FDA can make tests available under an emergency access mechanism called an Emergency Use Authorization (EUA). The EUA for this test is supported by the [place] of Health and Human Service's declaration that circumstances exist to justify the emergency use of in vitro diagnostics for the detection and/or diagnosis of the virus that causes COVID-19. This EUA will remain in effect for the duration of the COVID-19 declaration justifying emergency of IVDs, unless it is terminated or revoked by the FDA (after which the test may no longer be used). Performed By: #### C VDTBH #### [facility] [address] [place] [address] Dr. Sirisha Ashraf GROUP A STREP CULTUREon S. pyogenes Ag Ql (Unsp spec) Culture Observations: NEGATIVE FOR GROUP A STREPTOCOCCUS. Normal [facility] Comment on above: Performed By: #### S SCRN, GRASTCX #### [facility] [address] [place] [address] Dr. Sirisha Ashraf INFLUENZA A AND B AGon 04-15 INFLUANEGH SEE BELOW Normal [facility] Comment on above: Result Comment: Nega tive for Flu A protein angiten. Infection due to Flu A cannot be ruled out. Flu A angiten in the sample may be below the detection limit of the test. Performed By: #### I NFLUAB #### [facility] [address] [place] [address] Dr. Sirisha Ashraf INFLUBNEG SEE BELOW Normal [facility] Comment on above: Result Comment: Nega tive for Flu B protein antigen. Infection due to Flu B cannot be ruled out. Flu B antigen in the sample may be below the detection limit of the test. Performed By: #### I NFLUAB #### [facility] [address] [place] [address] Dr. Sirisha Ashraf INFLUENZA A AG Negative Normal NEGATIVE SEE COMMENT [facility] Comment on above: Performed By: #### I NFLUAB #### [facility] [address] [place] [address] Dr. Sirisha Ashraf INFLUENZA B AG Negative Normal NEGATIVE SEE COMMENT [facility] Comment on above: Performed By: #### I NFLUAB #### [facility] [address] [place] [address] Dr. Sirisha Ashraf INTERNAL CONTROLS Within Normal Limits Normal Within Normal Limits [facility] Comment on above: Performed By: #### I NFLUAB #### [facility] [address] [address] [address] Sirisha Ashraf STREPT SCREENon 04-15-2022 STREP SCREEN A Negative Normal NEGATIVE [facility] Comment on above: Performed By: #### S SCRSUBHASH HudsonTCX #### [facility] [address] [address] [address] Sirisha Ashraf Vital Signs Date Time Vital Sign Value Performing Clinician Faci lity 10-31-2022 19:13-0400 Diastolic blood pressure 48 mm[Hg] FIELD MARKETING REPRESENTATIVE-BC Shonda Bullimore Work Phone: [facility] 10-31-2022 19:13-0400 Heart rate 50 /min FIELD MARKETING REPRESENTATIVE-BC Shonda Bullimore Work Phone: [facility] 10-31-2022 19:13-0400 Respiratory rate 16 /min FIELD MARKETING REPRESENTATIVE-BC Shonda Bullimore Work Phone: [facility] 10-31-2022 19:13-0400 SaO2% (BldA) [Mass fraction] 98 % FIELD MARKETING REPRESENTATIVE-BC Shonda Bullimore Work Phone: [facility] 10-31-2022 19:13-0400 Systolic blood pressure 113 mm[Hg] FIELD MARKETING REPRESENTATIVE-BC Shonda Bullimore Work Phone: [facility] 10-31-2022 16:09-0400 Body temperature 97.6 [degF] FIELD MARKETING REPRESENTATIVE-BC Shonda Bullimore Work Phone: [facility] 10-31-2022 16:06-0400 Body height 157.48 cm FIELD MARKETING REPRESENTATIVE-BC Shonda Bullimore Work Phone: [facility] 10-31-2022 16:06-0400 Body weight 81.1 kg FIELD MARKETING REPRESENTATIVE-BC Shonda Bullimore Work Phone: [facility] Encounters Encounter Date Encounter Type Care Provider Facility Start: 10-31-2022 End: 10-31-2022 Emergency department patient visit Torito Wagner Facility:[facility] Start: 10-31-2022 End: 10-31-2022 Emergency department patient visit FIELD MARKETING REPRESENTATIVE- Shonda Villa Work Phone: [facility] Work Phone: Start: 10-31-2022 End: 10-31-2022 ambulatory [facility] Facility:[facility] Start: 06-30-2022 End: 06-30-2022 ambulatory [facility] Facility:[facility] Start: 04-15-2022 End: 04-15-2022 ambulatory [facility] Facility:[facility] Procedures Date Procedure Procedure Detail Performing Clinician Start: 10-31-2022 Computed tomography of abdomen and pelvis with contrast [facility] Shonda Villa Work Phone: Plan of Treatment Date Care Activity Detail Author Patient Education Nausea and Vom iting, Adult ED Cannabis Hyperemesis Syndrome [facility] Work Phone: Patient referral [facility] Work Phone: Payers Date Payer Category Payer Self-pay 1993 Unknown [id number] [id number] [id number] 1993 Unknown [id number] [id number] [id number] 1993 Unknown [id number] [id number] 1961 Medicaid [id number] 1961 Unknown [id number] Unknown [id number] [id number] Social History Date Type Detail Facility Start: 10-31-[address] [facility] Start: 1995 Sex Assigned At Female [facility] Evaluation note Note Date & Type Note Facility Evaluation note No assessment information availa ble [facility] Work Phone: Hospital Discharge instructions Note Date & Type Note Facility Hospital Discharge instructions Additional Instructions Take the medication as prescribed as needed Start with clear liquids such as Gatorade Pedialyte water Advance with bland foods as tolerated such as toast crackers soup Try not to use any marijuana as this could make symptoms worse Follow-up with your family doctor regarding your symptoms Return to the ER for worsening pain high fever vomiting despite medication or any other concerns [facility] Work Phone: Chief Complaint and Reason for Visit Chief Complaint n/v Advance Directives No Advanced Directives Records Found Advance Directive Response Recorded Date/ Time Advance Directives No October 31, 2 023 4:23pm Summary Purpose Family History No Family History Records FoundNo Family History Records Found Additional Source Comments Care Teams (unrecognized sec tion and content) Team Status: Active Member Role Status Dates JOSEPH Owens Primary Care Provider Active Team Status: Inactive Member Role Status Dates CHRISTOPHER Brown-TIRSO Emergency Provider Active JOSEPH Owens Primary Care Provider Active Goals (unrecognized section and content) Goals may be documented in a n alternate section INFORMATION SOURCE (unrecogn ized section and content) DATE CREATED AUTHOR 11/01/2022 [facility] DATE CREATED AUTHOR AUTHOR'S CLAIRE TORRES 11/06/2022 [facility] FOR RECORDS PERTAINING TO PATIENTS WHO ARE OR HAVE BEEN ENROLLED IN A CHEMICAL DEPENDENCY/SUBSTANCEABUSE PROGRAM, SOME INFORMATION MAY BE OMITTED. This clinical summary was aggregated from multiple sources. Caution should be exercised in using it in the provision of clinical care. This summary normalizes information from multiple sources, and as a consequence, information in this document may materially change the coding, format and clinical context of patient data. In addition, data may be omitted in some cases. CLINICAL DECISIONS SHOULD BE BASED ON THE PRIMARY CLINICAL RECORDS. [facility] [employer] provides no warranty or guarantee of the accuracy or completeness of information in this document.
== END 2024-01-25 16:56 | disposition home or self-care (01) ==
PROVIDERS: Emergency Provider Student in an Organized Health Care Education/Training Program; PCP Nurse Practitioner
DX: S80.862A Insect bite (nonvenomous), left lower leg, initial encounter (principal); W57.XXXA Bitten or stung by nonvenomous insect and other nonvenomous arthropods, initial encounter
CPT/HCPCS: 99283

== ENCOUNTER 2024-09-26 20:23 | Emergency (ER) | payer OTHER, SELFPAY ==
[2024-09-26 20:26] VITALS: BP 134/86; PULSE 97; TEMP 37.2; O2SAT 97; BMI 30.2
--- OUTSIDE RECORDS SUMMARY | 2024-09-26 20:28 | XMS_ITS | CCD ---
Author Organization [facility] Care Team Providers Care Chinese Herbalist Name Role Phone CHRISTOPHER Villa-BC Shonda Baird [...] 10-31-2022 Episodic Other aftercare (1 source) Other fdc (current) drug therapy; Translations: [OTH BRANCH COORDINATOR CURRENT DRUG THERAPY] Onset: 11-04-2022 Episodic Residual [...] 10-31-2022 ALT [Catalytic activity/Vol] 12 U/L 7-52 [facility] Albumin [Mass/volume] in Ser um or Plasma by Bromocresol green (BCG) dye binding methoOrdered By: Shonda Villa on 10-31-2022 Albumin BCG dye [Mass/Vol] 4.8 g/dL 3.5-5.7 [facility] Alkaline phosphatase [Enzyma tic activity/volume] in Serum or PlasmaOrdered By: Shonda Waldronore on 10-31-2022 ALP [Catalytic activity/Vol] 62 U/L 34-104 [facility] Amphetamine Screen Ql (U)Ord ered By: Shonda Smithimore on 10-31-2022 Amphetamines Ql (U) Negative Negative [facility] Aspartate aminotransferase [ Enzymatic activity/volume] in Serum or PlasmaOrdered By: Shonda Bullimore on 10-31-2022 AST [Catalytic activity/Vol] 18 U/L 13-39 [facility] Automated epithelial cells c ount in urine sediment (number/area)Ordered By: Shonda Waldronore on 10-31-2022 Epithelial cells Auto (Urine sed) [#/Area] 5-9 [HPF] 0-2 [facility] Automated erythrocytes count in urine sediment (number/area)Ordered By: Shonda Waldronore on 10-31-2022 RBC Auto (Urine sed) [#/Area] None seen [HPF] 0-4 [facility] Automated leukocytes count i n urine sediment (number/area)Ordered By: Shonda Smithimore on 10-31-2022 WBC Auto (Urine sed) [#/Area] 1-2 [HPF] 0-4 [facility] Automated urine hyaline cast s count (number/volume)Ordered By: Shonda Waldronore on 10-31-2022 Hyaline casts Auto (U) [#/Vol] None seen [LPF] 0-1 [facility] Barbiturates [Presence] in U rine by Screen methodOrdered By: Shonda Bullimore on 10-31-2022 Barbiturates Screen Ql (U) Negative Negative [facility] Basophils Auto (Bld) [#/Vol] Ordered By: Shonda Waldronore on 10-31-2022 Basophils (Bld) [#/Vol] 0.0 10*3/uL 0.0-0.2 [facility] Basophils/100 WBC Auto (Bld) Ordered By: Shondaedin Smithimore on 10-31-2022 Basophils/100 WBC (Bld) 0.3 % . [facility] Benzodiazepines Screen Ql (U )Ordered By: Shonda Bullimore on 10-31-2022 Benzodiazepines Ql (U) Negative Negative [facility] Benzoylecgonine [Presence] i n Urine by Screen methodOrdered By: Shonda Bullimore on 10-31-2022 Benzoylecgonine Screen Ql (U) Negative Negative [facility] Bilirubin Test strip Ql (U)O rdered By: Shonda Smithimore on 10-31-2022 Bilirubin Ql (U) Negative Negative [facility] Bilirubin.total [Mass/volume ] in Serum or PlasmaOrdered By: Shonda Smithimore on 10-31-2022 Bilirubin [Mass/Vol] 0.6 mg/dL 0.3-1.0 [facility] CBC AUTO DIFFon 10-31-2022 BASO # 0.0 103/ul Normal 0.0-0.1 [facility] Comment on above: Performed By: #### C BC #### [facility] [address] [place] [address] Dr. Sirisha Ashraf Basophils/100 WBC (Bld) 0.4 % Normal 0.2-2.0 [facility] Comment on above: Performed By: #### C BC #### [facility] [address] [place] [address] Dr. Sirisha Ashraf EO # 0.2 103/ul Normal 0.0-0.7 [facility] Comment on above: Performed By: #### C BC #### [facility] [address] [place] [address] [address] Sirisha Ashraf Eosinophils/100 WBC (Bld) 2.5 % Normal 0.9-7.0 [facility] Comment on above: Performed By: #### C BC #### [facility] [address] [place] [address] Dr. Sirisha Ashraf Erythrocyte distribution width (RBC) [Ratio] 13.4 % Normal 11.0-15.0 [facility] Comment on above: Performed By: #### C BC #### [facility] [address] [place] [address] Dr. Sirisha Ashraf Hematocrit (Bld) [Volume fraction] 44.1 % Normal 36.0-48.0 [facility] Comment on above: Performed By: #### C BC #### [facility] [address] [place] [address] Dr. Sirisha Ashraf Hemoglobin (Bld) [Mass/Vol] 14.2 g/dL Normal 12.0-16.0 [facility] Comment on above: Performed By: #### C BC #### [facility] [address] [place] [address] Dr. Sirisha Ashraf IG # 0.02 10e3/ul Normal 0.00-0.03 [facility] Comment on above: Performed By: #### C BC #### [facility] [address] [place] [address] Dr. Sirisha Ashraf IG % 0.2 % Normal 0.0-0.5 [facility] Comment on above: Performed By: #### C BC #### [facility] [address] [place] [address] Dr. Sirisha Ashraf LYMPH # 1.7 103/ul Normal 1.2-3.8 [facility] Comment on above: Performed By: #### C BC #### [facility] [address] [place] [address] Dr. Sirisha Ashraf Lymphocytes/100 WBC (Bld) 21.2 % Normal 20.5-60.0 [facility] Comment on above: Performed By: #### C BC #### [facility] [address] [place] [address] Dr. Sirisha Ashraf MANUAL DIFF REQ NO Normal [facility] Comment on above: Performed By: #### C BC #### [facility] [address] [place] [address] Dr. Sirisha Ashraf MCH (RBC) [Entitic mass] 28.4 pg Normal 26.7-34.0 [facility] Comment on above: Performed By: #### C BC #### [facility] [address] [place] [address] Dr. Sirisha Ashraf MCHC (RBC) [Mass/Vol] 32.2 g/dL Normal 29.9-35.2 [facility] Comment on above: Performed By: #### C BC #### [facility] [address] [address] [address] Sirisha Ashraf MCV (RBC) [Entitic vol] 88.2 fL Normal 81.0-99.0 [facility] Comment on above: Performed By: #### C BC #### [facility] [address] [place] [address] [address] Sirisha Ashraf MONO # 0.6 103/ul Normal 0.3-0.8 [facility] Comment on above: Performed By: #### C BC #### [facility] [address] [place] [address] [address] Sirisha Ashraf Monocytes/100 WBC (Bld) 7.3 % Normal 1.7-12.0 [facility] Comment on above: Performed By: #### C BC #### [facility] [address] [place] [address] Dr. Sirisha Ashraf NEUT # 5.5 103/ul Normal 1.4-6.5 [facility] Comment on above: Performed By: #### C BC #### [facility] [address] [place] [address] Dr. Sirisha Ashraf Neutrophils/100 WBC (Bld) 68.4 % Normal 43.0-75.0 [facility] Comment on above: Performed By: #### C BC #### [facility] [address] [place] [address] [address] Sirisha Ashraf Platelet mean volume (Bld) [Entitic vol] 10.7 fL Normal 9.5-13.5 [facility] Comment on above: Performed By: #### C BC #### [facility] [address] [address] [address] Sirisha Ashraf PLT 373 103/ul Normal 150-[address] [facility] Comment on above: Performed By: #### C BC #### [facility] [address] [address] [address] Sirisha Ashraf RBC 5.00 106/ul Normal 4.20-5.40 [facility] Comment on above: Performed By: #### C BC #### [facility] [address] [place], [place] [address] Dr. Sirisha Ashraf WBC 8.1 103/ul Normal 4.0-11.[address] [facility] Comment on above: Performed By: #### C BC #### [facility] [address] [place], [place] [address] abdomen pelvis w conon CT abdomen pelvis w con [facility] [place] [address] [place] [address] CT Scan Report Signed Patient: Jillian Bocanegra MR#: [id number] : 1995 Acct:[id number] Age/Sex: 26 / F ADM Date: 10/31/22 Loc: ER Room: Type: [facility] ER Attending Dr: Copies to: VALENTINE [...] Michelle Fleming M.D.10/31/2022 5:51 PM Dictation Location: [place] [address] Transcribed By: [facility] 10/31/221750 Dictated By: Michelle Fleming MD 10/31/221733 Signed By: 10/31/22 175 Normal [facility] Calcium [Mass/volume] in Ser um or PlasmaOrdered By: Shonda Villa on 10-31-2022 Calcium [Mass/Vol] 9.3 mg/dL 8.6-10.3 [facility] Cannabinoids [Presence] in U rine by Screen methodOrdered By: Shonda Villa on 10-31-2022 Cannabinoids Screen Ql (U) Positive Negative [facility] Comment on above: These are unconfirme d results and should not be used for legal purposes. Drug Cut-Off Concentration: AMPH 1000 ng/mL TITUS 200 ng/mL OLIVIA 200 ng/mL COCM 300 ng/mL OP 300 ng/mL PCP 25 ng/mL THC 20 ng/mL Carbon dioxide, total [Moles /volume] in Serum or PlasmaOrdered By: Shonda Villa on 10-31-2022 CO2 [Moles/Vol] 24.0 mmol/L 21.0-31.0 [facility] Chloride [Moles/volume] in S ben[place] or PlasmaOrdered By: Shonda Villa on 10-31-2022 Chloride [Moles/Vol] 105 mmol/L 98-107 [facility] Choriogonadotropin.beta subu nit [Units/volume] in Serum or PlasmaOrdered By: Shonda Villa on 10-31-2022 HCG.beta subunit Qn Negative [facility] Color Auto (U)Ordered By: Gi xavier Villa on 10-31-2022 Color (U) Yellow Yellow [facility] Complete Blood Count Auto Di ffon 10-31-2022 Basophils (Bld) [#/Vol] 0.0 10*3/uL Normal 0.0-0.2 [facility] Comment on above: Result Comment: PERF ORMED BY: [place] [address] PATHOLOGIST EDITOR MAP MELVI STRONG M.D. Performed By: #### C MP, CBC #### [facility] [address] [place] [address] Basophils/100 WBC (Bld) 0.3 % Normal . [facility] Comment on above: Performed By: #### C MP, CBC #### [facility] [address] [place] [address] Eosinophils (Bld) [#/Vol] 0.0 10*3/uL Normal 0.0-0.45 [facility] Comment on above: Performed By: #### C MP, CBC #### [address] Eosinophils/100 WBC (Bld) 0.0 % Normal . [facility] Comment on above: Performed By: #### C MP, CBC #### [address] Erythrocyte distribution width (RBC) [Ratio] 13.4 % Normal 11.9-15.3 [facility] Comment on above: Performed By: #### C MP, CBC #### [address] Hematocrit (Bld) [Volume fraction] 39.1 % Normal 34.0-46.4 [facility] Comment on above: Performed By: #### C MP, CBC #### [place] [address] [place] Hemoglobin (Bld) [Mass/Vol] 12.8 g/dL Normal 11.8-15.4 [facility] Comment on above: Performed By: #### C MP, CBC #### [facility] [address] [place] [address] [place] Lymphocytes (Bld) [#/Vol] 0.9 10*3/uL Low 1.00-4.8 [facility] Comment on above: Performed By: #### C MP, CBC #### [place] [address] [place] Lymphocytes/100 WBC (Bld) 6.3 % Normal . [facility] Comment on above: Performed By: #### C MP, CBC #### [address] MCH (RBC) [Entitic mass] 28.1 pg Normal 24.7-34.3 [facility] Comment on above: Performed By: #### C MP, CBC #### [address] MCV (RBC) [Entitic vol] 85.6 fL Normal 80-100 [facility] Comment on above: Performed By: #### C MP, CBC #### [address] Mean Corpuscular HGB Conc 32.8 g/dL Normal 32.0-35.0 [facility] Comment on above: Performed By: #### C MP, CBC #### [place] [address] [place] Monocytes (Bld) [#/Vol] 0.4 10*3/uL Normal 0.0-0.8 [facility] Comment on above: Performed By: #### C MP, CBC #### [address] Monocytes/100 WBC (Bld) 16.94 % Normal 0.00-20.00 [facility] Comment on above: Performed By: #### C MP, CBC #### [place] [address] [place] Monocytes/100 WBC (Bld) 2.7 % Normal . [facility] Comment on above: Performed By: #### C MP, CBC #### [address] Neutrophils (Bld) [#/Vol] 13.0 10*3/uL High 1.8-7.7 [facility] Comment on above: Performed By: #### C MP, CBC #### [address] [place] [address] [place] Neutrophils/100 WBC (Bld) 90.7 % Normal . [facility] Comment on above: Performed By: #### C MP, CBC #### [facility] [address] NRBC% 0.0 /100{WBC} Normal 0-0.5 [facility] Comment on above: Performed By: #### C MP, CBC #### [address] Platelet mean volume (Bld) [Entitic vol] 8.8 fL Normal 6.3-10.7 [facility] Comment on above: Performed By: #### C MP, CBC #### [address] Platelets (Bld) [#/Vol] 341 10*3/uL Normal 150-450 [facility] Comment on above: Performed By: #### C MP, CBC #### [address] RBC (Bld) [#/Vol] 4.56 10*6/uL Normal 3.60-5.00 [facility] Comment on above: Performed By: #### C MP, CBC #### [address] WBC (Bld) [#/Vol] 14.4 10*3/uL High 3.8-11.6 [facility] Comment on above: Performed By: #### C MP, CBC #### [address] Comprehensive Metabolic Pane marcelino 10-31-2022 Albumin [Mass/Vol] 4.8 g/dL Normal 3.5-5.7 [facility] Comment on above: Performed By: #### C MP, CBC #### [address] Albumin/Globulin [Mass ratio] 1.5 {ratio} Normal [facility] Comment on above: Performed By: #### C MP, CBC #### [facility] [address] ALP [Catalytic activity/Vol] 62 U/L Normal 34-104 [facility] Comment on above: Performed By: #### C MP, CBC #### [facility] [address] ALT [Catalytic activity/Vol] 12 U/L Normal 7-52 [facility] Comment on above: Performed By: #### C MP, CBC #### [address] Anion gap [Moles/Vol] 14.8 mmol/L Normal 6.0-15.0 [facility] Comment on above: Performed By: #### C MP, CBC #### [address] AST [Catalytic activity/Vol] 18 U/L Normal 13-39 [facility] Comment on above: Performed By: #### C MP, CBC #### [address] Bilirubin [Mass/Vol] 0.6 mg/dL Normal 0.3-1.0 [facility] Comment on above: Performed By: #### C MP, CBC #### [address] Calcium [Mass/Vol] 9.3 mg/dL Normal 8.6-10.3 [facility] Comment on above: Performed By: #### C MP, CBC #### [address] Chloride [Moles/Vol] 105 mmol/L Normal 98-107 [facility] Comment on above: Performed By: #### C MP, CBC #### [address] CO2 [Moles/Vol] 24.0 mmol/L Normal 21.0-31.0 [facility] Comment on above: Performed By: #### C MP, CBC #### [address] Creatinine [Mass/Vol] 0.75 mg/dL Normal 0.60-1.20 [facility] Comment on above: Performed By: #### C MP, CBC #### [facility] [address] [place] [address] [place] Creatinine Clr Calc Pharmacy 110.19 Normal [facility] Comment on above: Result Comment: PERF ORMED BY: [facility] [address] [place] [address] PATHOLOGIST EDITOR MAP MELVI STRONG M.D. Performed By: #### C MP, CBC #### [facility] [address] [place] [address] [place] GFR/1.73 sq M.predicted MDRD (S/P/Bld) [Vol rate/Area] mL/min/{1.73_m2} Normal [facility] Comment on above: Performed By: #### C MP, CBC #### [facility] [address] Globulin (S) [Mass/Vol] 3.3 g/dL Normal [facility] Comment on above: Performed By: #### C MP, CBC #### [facility] [address] Glucose [Mass/Vol] 113 mg/dL High 70-100 [facility] Comment on above: Result Comment: [facility] Glucose Reference Range is dependent on time and content of last meal. Glucose of more than 200 mg/dL in a nonstressed, ambulatory subject supports the diagnosis of Diabetes Mellitus. ADA recommended reference range Performed By: #### C MP, CBC #### [facility] [address] Potassium [Moles/Vol] 3.8 mmol/L Normal 3.5-5.1 [facility] Comment on above: Performed By: #### C MP, CBC #### [facility] [address] Protein [Mass/Vol] 8.1 g/dL Normal 6.4-8.9 [facility] Comment on above: Performed By: #### C MP, CBC #### [facility] [address] [place] [address] [place] Sodium [Moles/Vol] 140 mmol/L Normal 136-145 [facility] Comment on above: Performed By: #### C MP, CBC #### [facility] [address] Urea nitrogen [Mass/Vol] 8 mg/dL Normal 7-25 [facility] Comment on above: Performed By: #### C MP, CBC #### [facility] [address] Creatinine [Mass/volume] in Serum or PlasmaOrdered By: Shonda Villa on 10-31-2022 Creatinine [Mass/Vol] 0.75 mg/dL 0.60-1.20 [facility] Dipstick and Microscopicon 0 10-31-2022 Appearance (U) Clear Normal Clear [facility] Comment on above: Order Comment: Name Collection Type:: Voided Performed By: #### A DDONUAPLUS, UHCG, URDS #### [address] Bacteria,Urine 1+ High None Seen [facility] Comment on above: Order Comment: Name Collection Type:: Voided Performed By: #### A DDONUAPLUS, UHCG, URDS #### [place] [address] [place] Bilirubin,Urine Negative Normal Negative [facility] Comment on above: Order Comment: Name Collection Type:: Voided Performed By: #### A DDONUAPLUS, UHCG, URDS #### [facility] [address] [place] [address] [place] Color (U) Yellow Normal Yellow [facility] Comment on above: Order Comment: Name Collection Type:: Voided Performed By: #### A DDONUAPLUS, UHCG, URDS #### [facility] [address] [place] [address] [place] Glucose Ql (U) Normal Normal Normal [facility] Comment on above: Order Comment: Name Collection Type:: Voided Performed By: #### A DDONUAPLUS, UHCG, URDS #### [facility] [address] [place] [address] Hyaline Casts,Urine None Seen Normal 0-1 [facility] Comment on above: Order Comment: Name Collection Type:: Voided Performed By: #### A DDONUAPLUS, UHCG, URDS #### [facility] [address] [place] [address] Ketones Ql (U) 4+ High Negative [facility] Comment on above: Order Comment: Name Collection Type:: Voided Performed By: #### A DDONUAPLUS, UHCG, URDS #### [address] Leukocyte esterase Test strip Ql (U) 1+ High Negative [facility] Comment on above: Order Comment: Name Collection Type:: Voided Performed By: #### A DDONUAPLUS, UHCG, URDS #### [address] Mucus,Urine 2+ Critically abnormal [facility] Comment on above: Order Comment: Name Collection Type:: Voided Performed By: #### A DDONUAPLUS, UHCG, URDS #### [address] Nitrite,Urine Negative Normal Negative [facility] Comment on above: Order Comment: Name Collection Type:: Voided Performed By: #### A DDONUAPLUS, UHCG, URDS #### [facility] [address] [place] [address] Occult Blood,Urine Negative Normal Negative [facility] Comment on above: Order Comment: Name Collection Type:: Voided Performed By: #### A DDONUAPLUS, UHCG, URDS #### [address] pH (U) 8.0 [pH] Normal 5.0-9.0 [facility] Comment on above: Order Comment: Name Collection Type:: Voided Performed By: #### A DDONUAPLUS, UHCG, URDS #### [address] [place] [address] [place] Protein (U) [Mass/Vol] 30 mg/dL High Negative [facility] Comment on above: Order Comment: Name Collection Type:: Voided Performed By: #### A DDONUAPLUS, UHCG, URDS #### [address] RBC,Urine None Seen Normal 0-4 [facility] Comment on above: Order Comment: Name Collection Type:: Voided Performed By: #### A DDONUAPLUS, UHCG, URDS #### [address] Renal Epithelial Cells,Urine None Seen Normal 0-1 [facility] Comment on above: Order Comment: Name Collection Type:: Voided Performed By: #### A DDONUAPLUS, UHCG, URDS #### [address] Specificy [place],Urine 1.030 Normal 1.001-1.030 [facility] Comment on above: Order Comment: Name Collection Type:: Voided Performed By: #### A DDONUAPLUS, UHCG, URDS #### [address] Squamous Epithelial Cell,Urine 5-9 High 0-2 [facility] Comment on above: Order Comment: Name Collection Type:: Voided Performed By: #### A DDONUAPLUS, UHCG, URDS #### [address] Urobilinogen,Urine Normal Normal Normal [facility] Comment on above: Order Comment: Name Collection Type:: Voided Performed By: #### A DDONUAPLUS, UHCG, URDS #### [address] WBC,Urine 1-2 Normal 0-4 [facility] Comment on above: Order Comment: Name Collection Type:: Voided Performed By: #### A DDONUAPLUS, UHCG, URDS #### [address] [place] [address] [place] Drug Screen,Urineon 11-01-19 Amphetamine Screen,Urine Negative Normal Negative [facility] Comment on above: Performed By: #### A DDONUAPLUS, UHCG, URDS #### [place] [address] [place] Barbiturate Screen,Urine Negative Normal Negative [facility] Comment on above: Performed By: #### A DDONUAPLUS, UHCG, URDS #### [place] [address] [place] Benzodiazepines Screen,Urine Negative Normal Negative [facility] Comment on above: Performed By: #### A DDONUAPLUS, UHCG, URDS #### [address] Cannabinoid Screen,Urine Positive High Negative [facility] Comment on above: Result Comment: Thes e are unconfirmed results and should not be used for legal purposes. Drug Cut-Off Concentration: AMPH 1000 ng/mL TITUS 200 ng/mL OLIVIA 200 ng/mL COCM 300 ng/mL OP 300 ng/mL PCP 25 ng/mL THC 20 ng/mL PERFORMED BY: [place] [address] PATHOLOGIST EDITOR MAP MELVI STRONG M.D. Performed By: #### A DDONUAPLUS, UHCG, URDS #### [place] [address] [place] Cocaine Screen,Urine Negative Normal Negative [facility] Comment on above: Performed By: #### A DDONUAPLUS, UHCG, URDS #### [place] [address] [place] Opiate Screen,Urine Negative Normal Negative [facility] Comment on above: Performed By: #### A DDONUAPLUS, UHCG, URDS #### [place] [address] [place] Phencyclidine Screen,Urine Negative Normal Negative [facility] Comment on above: Performed By: #### A DDONUAPLUS, UHCG, URDS #### [facility] [address] Eosinophils Auto (Bld) [#/Vo l]Ordered By: Shonda Allen on 10-31-2022 Eosinophils (Bld) [#/Vol] 0.0 10*3/uL 0.0-0.45 [facility] Eosinophils/100 WBC Auto (Bl d)Ordered By: Shondaedin Waldronore on 10-31-2022 Eosinophils/100 WBC (Bld) 0.0 % . [facility] Erythrocyte distribution wid th Auto (RBC) [Ratio]Ordered By: [facility] on 10-31-2022 Erythrocyte distribution width (RBC) [Ratio] 13.4 % 11.9-15.3 [facility] Globulin Calc (S) [Mass/Vol] Ordered By: [facility] on 10-31-2022 Globulin (S) [Mass/Vol] 3.3 g/dL [facility] Glucose [Mass/volume] in Ser um or PlasmaOrdered By: [facility] on 10-31-2022 Glucose [Mass/Vol] 113 mg/dL 70-100 [facility] Comment on above: ADA recommended refe rence rangeRandom Glucose Reference Range is dependent on time and content of last meal. Glucose of more than 200 mg/dL in a nonstressed, ambulatory subject supports the diagnosis of Diabetes Mellitus. HCG ( test) IA.rapi d Ql (U)Ordered By: [facility] 10-31-[facility] HCG ( test) Ql (U) Negative [facility] HCG,Qualitative Serumon 10-12 HCG,Qualitative Serum Negative Normal [facility] Comment on above: Result Comment: PERF ORMED BY: [place] [address] PATHOLOGIST EDITOR MAP MELVI STRONG M.D. Performed By: #### H CGQUAL #### [facility] [address] HCG,Urineon 10-31-2022 Beta HCG ( test) Ql (U) Negative Normal [facility] Comment on above: Order Comment: Name Collection Type:: Voided Result Comment: PERF ORMED BY: [facility] [address] [place] [address] PATHOLOGIST EDITOR MAP MELVI STRONG M.D. Performed By: #### A PATRICIA, CG, URDS #### [facility] [address] Hematocrit Auto (Bld) [Volum e fraction]Ordered By: Shonda Bullimore on 10-31-2022 Hematocrit (Bld) [Volume fraction] 39.1 % 34.0-46.4 [facility] Hemoglobin [Mass/volume] in BloodOrdered By: Shonda Bullimore on 10-31-2022 Hemoglobin (Bld) [Mass/Vol] 12.8 g/dL 11.8-15.4 [facility] Ketones Auto test strip (U) [Mass/Vol]Ordered By: Shonda Bullimore on 10-31-2022 Ketones (U) [Mass/Vol] 4+ Negative [facility] LIPASEon 10-31-2022 Lipase [Catalytic activity/Vol] 118.0 U/L Normal 73.0-393.[address] [facility] Comment on above: Performed By: #### C MP, LIPA #### [facility] [address] [place] [address] Dr. Sirisha Ashraf Leukocytes [#/volume] correc maite for nucleated erythrocytes in Blood by Automated counOrdered By: Shonda Bullimore on 10-31-2022 WBC corrected for nucl RBC Auto (Bld) [#/Vol] 14.4 10*3/uL 3.8-11.6 [facility] Lymphocytes Auto (Bld) [#/Vo l]Ordered By: Shonda Bullimore on 10-31-2022 Lymphocytes (Bld) [#/Vol] 0.9 10*3/uL 1.00-4.8 [facility] Lymphocytes/100 WBC Auto (Bl d)Ordered By: Shonda Bullimore on 10-31-2022 Lymphocytes/100 WBC (Bld) 6.3 % . [facility] MCH Auto (RBC) [Entitic mass ]Ordered By: Shonda Bullimore on 10-31-2022 MCH (RBC) [Entitic mass] 28.1 pg 24.7-34.3 [facility] MCHC Auto (RBC) [Mass/Vol]Or dered By: Shonda Bullimore on 10-31-2022 MCHC (RBC) [Mass/Vol] 32.8 g/dL 32.0-35.0 [facility] MCV Auto (RBC) [Entitic vol] Ordered By: Shonda Bullimore on 10-31-2022 MCV (RBC) [Entitic vol] 85.6 fL 80-100 [facility] Monocyte distribution width [Entitic volume] in Blood by AutomatedOrdered By: Shonda Smithimore on 10-31-2022 Monocyte distribution width Auto (Bld) [Entitic vol] 16.94 % 0.00-20.00 [facility] Monocytes Auto (Bld) [#/Vol] Ordered By: Shonda Smithimore on 10-31-2022 Monocytes (Bld) [#/Vol] 0.4 10*3/uL 0.0-0.8 [facility] Monocytes/100 WBC Auto (Bld) Ordered By: Shonda Bullimore on 10-31-2022 Monocytes/100 WBC (Bld) 2.7 % . F [facility] Mucus LM Ql (Urine sed)Order ed By: Shonda Bullimore on 10-31-2022 Mucus Ql (Urine sed) 2+ [LPF] [facility] Neutrophils Auto (Bld) [#/Vo l]Ordered By: Shonda Bullimore on 10-31-2022 Neutrophils (Bld) [#/Vol] 13.0 10*3/uL 1.8-7.7 [facility] Neutrophils/100 WBC Auto (Bl d)Ordered By: Shondaedin Smithimore on 10-31-2022 Neutrophils/100 WBC (Bld) 90.7 % . [facility] Nitrite Test strip Ql (U)Ord ered By: Shonda Villa on 10-31-2022 Nitrite Ql (U) Negative Negative [facility] No Panel InformationOrdered By: Shonda Smithimevelina on 10-31-2022 Estimated GFR (CKD-EPI) > 60.0 mL/Min [facility] Creatinine Clearance (Chem 110.19 [facility] Nucleated erythrocytes [Pres ence] in Blood by Automated countOrdered By: Shonda Villa on 10-31-2022 Nucleated RBC Auto Ql (Bld) 0.0 /100{WBC} 0-0.5 [facility] Opiates [Presence] in Urine by Screen methodOrdered By: Shonda Villa on 10-31-2022 Opiates Screen Ql (U) Negative Negative [facility] PROF 14(COMP METB)on 023 Albumin [Mass/Vol] 4.4 g/dL Normal 3.4-5.0 [facility] Comment on above: Performed By: #### C MP, LIPA #### [facility] [address] [place] [address] Dr. Sirisha Ashraf Albumin/Globulin [Mass ratio] 0.9 {ratio} Normal [facility] Comment on above: Performed By: #### C MP, LIPA #### [facility] [address] [place] [address] Dr. Sirisha Ashraf ALP [Catalytic activity/Vol] 73 U/L Normal 46-116 [facility] Comment on above: Performed By: #### C MP, LIPA #### [facility] [address] [place] [address] Dr. Sirisha Ashraf ALT [Catalytic activity/Vol] 22 U/L Normal 14-59 [facility] Comment on above: Performed By: #### C MP, LIPA #### [facility] [address] [place] [address] Dr. Sirisha Ashraf Anion gap [Moles/Vol] 14.4 mmol/L Normal [facility] Comment on above: Performed By: #### C MP, LIPA #### [facility] [address] [place] [address] Dr. Sirisha Ashraf AST [Catalytic activity/Vol] 16 U/L Normal 15-37 [facility] Comment on above: Performed By: #### C MP, LIPA #### [facility] [address] [place] [address] Dr. Sirisha Ashraf Bilirubin [Mass/Vol] 0.4 mg/dL Normal 0.2-1.0 [facility] Comment on above: Performed By: #### C MP, LIPA #### [facility] [address] [place] [address] Dr. Sirisha Ashraf Calcium [Mass/Vol] 9.4 mg/dL Normal 8.5-10.1 [facility] Comment on above: Performed By: #### C MP, LIPA #### [facility] [address] [place] [address] Dr. Sirisha Ashraf Chloride [Moles/Vol] 104 mmol/L Normal 98-107 [facility] Comment on above: Performed By: #### C MP, LIPA #### [facility] [address] [place] [address] Dr. Sirisha Ashraf CO2 [Moles/Vol] 28.0 mmol/L Normal 21.0-32.0 [facility] Comment on above: Performed By: #### C MP, LIPA #### [facility] [address] [place] [address] Dr. Sirisha Ashraf Creatinine [Mass/Vol] 0.80 mg/dL Normal 0.55-1.02 [facility] Comment on above: Performed By: #### C MP, LIPA #### [facility] [address] [place] [address] Dr. Sirisha Ashraf EGFR-AF GHANAIAN >60 Normal >=60 [facility] Comment on above: Performed By: #### C MP, LIPA #### [facility] [address] [place] [address] Dr. Sirisha Asrhaf EGFR-NON AF GHANAIAN >60 Normal >=60 [facility] Comment on above: Performed By: #### C MP, LIPA #### [facility] [address] [place] [address] Dr. Sirisha Ashraf Globulin (S) [Mass/Vol] 4.7 g/dL Normal T [facility] Comment on above: Performed By: #### C MP, LIPA #### [facility] [address] [place] [address] Dr. Sirisha Ashraf Glucose [Mass/Vol] 109 mg/dL Critically high 74-106 [facility] Comment on above: Performed By: #### C MP, LIPA #### [facility] [address] [address] [address] Sirisha Ashraf Potassium [Moles/Vol] 3.4 mmol/L Critically low 3.5-5.1 [facility] Comment on above: Performed By: #### C MP, LIPA #### [facility] [address] [place] [address] Dr. Sirisha Ashraf Protein [Mass/Vol] 9.1 g/dL Critically high 6.4-8.2 [facility] Comment on above: Performed By: #### C ROSY, LIPA #### [facility] [address] [place] [address] Dr. Sirisha Ashraf Sodium [Moles/Vol] 143 mmol/L Normal 136-145 [facility] Comment on above: Performed By: #### C ROSY, LIPA #### [facility] [address] [place] [address] Dr. Sirisha Ashraf Urea nitrogen [Mass/Vol] 9.0 mg/dL Normal 7.0-18.0 [facility] Comment on above: Performed By: #### C ROSY, LIPA #### [facility] [address] [place] [address] Dr. Sirisha Ashraf Urea nitrogen/Creatinine [Mass ratio] 11.2 mg/mg Normal [facility] Comment on above: Performed By: #### C ROSY, LIPA #### [facility] [address] [place] [address] Dr. Sirisha Ashraf Phencyclidine Screen Ql (U)O rdered By: Shonda Villa on 10-31-2022 Phencyclidine Ql (U) Negative Negative [facility] Platelet mean volume Auto (B ld) [Entitic vol]Ordered By: Shonda Villa on 10-31-2022 Platelet mean volume (Bld) [Entitic vol] 8.8 fL 6.3-10.7 [facility] Platelets Auto (Bld) [#/Vol] Ordered By: Shonda Waldronore on 10-31-2022 Platelets (Bld) [#/Vol] 341 10*3/uL 150-450 [facility] Potassium [Moles/volume] in Serum or PlasmaOrdered By: Shonda Bullimore on 10-31-2022 Potassium [Moles/Vol] 3.8 mmol/L 3.5-5.1 [facility] Protein Auto test strip (U) [Mass/Vol]Ordered By: Shonda Bullimore on 10-31-2022 Protein (U) [Mass/Vol] 30 mg/dL Negative [facility] Protein [Mass/volume] in Ser um or PlasmaOrdered By: Shonda Bullimore on 10-31-2022 Protein [Mass/Vol] 8.1 g/dL 6.4-8.9 [facility] RBC Auto (Bld) [#/Vol]Ordere d By: Shonda Bullimore on 10-31-2022 RBC (Bld) [#/Vol] 4.56 10*6/uL 3.60-5.00 [facility] Serum or plasma albumin/glob ulin mass ratioOrdered By: Shonda Bullimore on 10-31-2022 Albumin/Globulin [Mass ratio] 1.5 {ratio} [facility] Serum or plasma anion gap de terminationOrdered By: Shonda Bullimore on 10-31-2022 Anion gap [Moles/Vol] 14.8 mmol/L 6.0-15.0 [facility] Sodium [Moles/volume] in Ser um or PlasmaOrdered By: Shonda Bullimore on 10-31-2022 Sodium [Moles/Vol] 140 mmol/L 136-145 [facility] Specific gravity Auto test s trip (U) [Rel density]Ordered By: Shonda Bullimore on 10-31-2022 Specific gravity (U) [Rel density] 1.030 1.001-1.030 [facility] Urea nitrogen [Mass/volume] in Serum or PlasmaOrdered By: Shonda Bullimore on 10-31-2022 Urea nitrogen [Mass/Vol] 8 mg/dL 7-25 [facility] Urine bacteria detection by automated methodOrdered By: Shonda Villa on 10-31-2022 Bacteria Auto Ql (U) 1+ None Seen [facility] Urine clarity by refractomet ry automatedOrdered By: Shonda Villa on 10-31-2022 Clarity Refractometry automated (U) Clear Clear [facility] Urine glucose measurement by automated test strip (mass/volume)Ordered By: Shonda Villa on 10-31-2022 Glucose Auto test strip (U) [Mass/Vol] Normal mg/dL Normal [facility] Urine hemoglobin detection b y automated test stripOrdered By: Shonda Villa on 10-31-2022 Hemoglobin Auto test strip Ql (U) Negative Negative [facility] Urine leukocyte esterase det ection by automated test stripOrdered By: Shonda Villa on 10-31-2022 Leukocyte esterase Auto test strip Ql (U) 1+ Negative [facility] Urine sediment renal epithel ial cell count by microscopy (number/high power field)Ordered By: Shonda Villa on 10-31-2022 Epithelial cells.renal LM.HPF (Urine sed) [#/Area] None seen [HPF] 0-1 [facility] Urobilinogen Auto test strip (U) [Mass/Vol]Ordered By: Shonda Villa on 10-31-2022 Urobilinogen (U) [Mass/Vol] Normal mg/dL Normal [facility] WBC Auto (Bld) [#/Vol]Ordere d By: Shonda Villa on 10-31-2022 WBC (Bld) [#/Vol] 14.4 10*3/uL 3.8-11.6 [facility] pH Auto test strip (U)Ordere d By: Shonda Villa on 10-31-2022 pH (U) 8.0 [pH] 5.0-9.0 [facility] ER URINE PROFILEon 2 Bilirubin Ql (U) Negative Normal NEGATIVE [facility] Comment on above: Performed By: #### E RUR PREGU #### [facility] [address] [place] [address] Dr. Sirisha Ashraf Clarity (U) CLEAR Normal CLEAR [facility] Comment on above: Performed By: #### E RUR, PREGU #### [facility] [address] [place] [address] Dr. Sirisha Ashraf Color (U) LT. YELLOW Normal YELLOW [facility] Comment on above: Performed By: #### E RUR, PREGU #### [facility] [address] [place] [address] Dr. Sirisha Ashraf ERUAHD A micrscopic examination will be performed if indicated. Normal [facility] Comment on above: Performed By: #### E RUR, PREGU #### [facility] [address] [place] [address] Dr. Sirisha Ashraf Glucose Ql (U) Negative Normal NEGATIVE [facility] Comment on above: Performed By: #### E RUR, PREGU #### [facility] [address] [place] [address] Dr. Sirisha Ashraf Hemoglobin Ql (U) Negative Normal NEGATIVE [facility] Comment on above: Performed By: #### E RUR, PREGU #### [facility] [address] [place] [address] Dr. Sirisha Ashraf Ketones Ql (U) Negative Normal NEGATIVE [facility] Comment on above: Performed By: #### E RUR, PREGU #### [facility] [address] [place] [address] Dr. Sirisha Ashraf LEUKOCYTES Negative Normal NEGATIVE [facility] Comment on above: Performed By: #### E RUR, PREGU #### [facility] [address] [place] [address] Dr. Sirisha Ashraf Nitrite Ql (U) Negative Normal NEGATIVE [facility] Comment on above: Performed By: #### E RUR, PREGU #### [facility] [address] [place] [address] Dr. Sirisha Ashraf pH (U) 7.5 [pH] Normal 5-9 [facility] Comment on above: Performed By: #### E RUR, PREGU #### [facility] [address] [place] [address] Dr. Sirisha Ashraf SPEC GRAVITY 1.020 Normal 1.005-<=1.[address] [facility] Comment on above: Performed By: #### E RUR, PREGU #### [facility] [address] [place] [address] Dr. Sirisha Ashraf UA PROTEIN Negative Normal NEGATIVE/ TRACE [facility] Comment on above: Performed By: #### E RUR, PREGU #### [facility] [address] [place] [address] Dr. Sirisha Ashraf UR MICRO IND NOT INDICATED Normal [facility] Comment on above: Performed By: #### E RUR, PREGU #### [facility] [address] [place] [address] Dr. Sirisha Ashraf Urobilinogen Qn (U) 0.2 {Adryan'U}/dL Normal 0.2 - 1. [address] [facility] Comment on above: Performed By: #### E RUR, PREGU #### [facility] [address] [place] [address] Dr. Sirisha Ashraf URon 06-30-2022 , QUAL Negative Normal NEGATIVE [facility] Comment on above: Performed By: #### E RUR, PREGU #### [facility] [address] [place] [address] Dr. Sirisha Ashraf Covid-19 PCR ([facility])on SARS-CoV-2 (COVID-19) RNA YAKELIN+probe Ql (Unsp spec) Not detected Normal NOT DETECTED [facility] Comment on above: Result Comment: When [...] for this test is supported by the [place] of Health and Human Service's declaration that [...] used). Performed By: #### C VDTBH #### [facility] [address] [place] [address] Dr. Sirisha Ashraf GROUP A STREP CULTUREon S. pyogenes Ag Ql (Unsp spec) Culture Observations: NEGATIVE FOR GROUP A STREPTOCOCCUS. Normal [facility] Comment on above: Performed By: #### S SCRN, GRASTCX #### [facility] [address] [place] [address] Dr. Sirisha Ashraf INFLUENZA A AND B AGon 04-15 INFLUANEGH SEE BELOW Normal [facility] Comment on above: Result Comment: Nega tive for Flu A protein angiten. Infection due to Flu A cannot be ruled out. Flu A angiten in the sample may be below the detection limit of the test. Performed By: #### I NFLUAB #### [facility] [address] [place] [address] Dr. Sirisha Ashraf INFLUBNEG SEE BELOW Normal [facility] Comment on above: Result Comment: Nega tive for Flu B protein antigen. Infection due to Flu B cannot be ruled out. Flu B antigen in the sample may be below the detection limit of the test. Performed By: #### I NFLUAB #### [facility] [address] [place] [address] Dr. Sirisha Ashraf INFLUENZA A AG Negative Normal NEGATIVE SEE COMMENT [facility] Comment on above: Performed By: #### I NFLUAB #### [facility] [address] [place] [address] Dr. Sirisha Ashraf INFLUENZA B AG Negative Normal NEGATIVE SEE COMMENT [facility] Comment on above: Performed By: #### I NFLUAB #### [facility] [address] [place] [address] Dr. Sirisha Ashraf INTERNAL CONTROLS Within Normal Limits Normal Within Normal Limits [facility] Comment on above: Performed By: #### I NFLUAB #### [facility] [address] [address] [address] Sirisha Ashraf STREPT SCREENon 04-15-2022 STREP SCREEN A Negative Normal NEGATIVE [facility] Comment on above: Performed By: #### S SCRSUBHASH HudsonTCX #### [facility] [address] [address] [address] Sirisha Ashraf Vital Signs Date Time Vital Sign Value Performing Clinician Faci lity 10-31-2022 19:13-0400 Diastolic blood pressure 48 mm[Hg] COMMUNITY FACILITATOR-BC Shonda Bullimore Work Phone: [facility] 10-31-2022 19:13-0400 Heart rate 50 /min COMMUNITY FACILITATOR-BC Shonda Bullimore Work Phone: [facility] 10-31-2022 19:13-0400 Respiratory rate 16 /min COMMUNITY FACILITATOR-BC Shonda Bullimore Work Phone: [facility] 10-31-2022 19:13-0400 SaO2% (BldA) [Mass fraction] 98 % COMMUNITY FACILITATOR-BC Shonda Bullimore Work Phone: [facility] 10-31-2022 19:13-0400 Systolic blood pressure 113 mm[Hg] COMMUNITY FACILITATOR-BC Shonda Bullimore Work Phone: [facility] 10-31-2022 16:09-0400 Body temperature 97.6 [degF] COMMUNITY FACILITATOR-BC Shonda Bullimore Work Phone: [facility] 10-31-2022 16:06-0400 Body height 157.48 cm COMMUNITY FACILITATOR-BC Shonda Bullimore Work Phone: [facility] 10-31-2022 16:06-0400 Body weight 81.1 kg COMMUNITY FACILITATOR-BC Shonda Bullimore Work Phone: [facility] Encounters Encounter Date Encounter Type Care Provider Facility Start: 10-31-2022 End: 10-31-2022 Emergency department patient visit Torito Wagner Facility:[facility] Start: 10-31-2022 End: 10-31-2022 Emergency department patient visit COMMUNITY FACILITATOR- Shonda Villa Work Phone: [facility] Work Phone: Start: 10-31-2022 End: 10-31-2022 ambulatory [facility] Facility:H1 Start: 06-30-2022 End: 06-30-2022 ambulatory [facility] Facility:[facility]1 Start: 04-15-2022 End: 04-15-2022 ambulatory [facility] Facility:H1 Procedures Date Procedure Procedure Detail Performing Clinician Start: 10-31-2022 Computed tomography of abdomen and pelvis with contrast [facility]- Shonda Villa Work Phone: Plan of Treatment Date Care Activity Detail Author Patient Education Nausea and Vom iting, Adult ED Cannabis Hyperemesis Syndrome [facility] Work Phone: Patient referral [facility] Work Phone: Payers Date Payer Category Payer Self-pay 1995 Unknown [id number] 1993 Unknown [id number] 1993 Unknown [id number] 1961 Medicaid [id number] 1961 Unknown [id number] Unknown [id number] Social History Date Type Detail Facility Start: [facility]-31[facility]22 [facility] Start: 1995 Sex Assigned At Female F [facility] Evaluation note Note Date & Type Note Facility Evaluation note No assessment information availa ble [facility] Work Phone: Hospital Discharge instructions Note [...] vomiting despite medication or any other concerns [facility] Work Phone: Chief Complaint and Reason [...] section and content) DATE CREATED AUTHOR 11/01/2022 [facility] DATE CREATED AUTHOR AUTHOR'S CLAIRE TORRES 11/06/2022 [facility] FOR RECORDS PERTAINING TO PATIENTS WHO ARE [...] BE BASED ON THE PRIMARY CLINICAL RECORDS. [facility] [employer] provides no warranty or guarantee of the accuracy or completeness of information in this document.
--- NOTE | 2024-09-26 20:38 | ED.GENADUL1 ---
HPI HPI - General Adult General Chief complaint: Upper Respiratory Infection Stated complaint: sore throat Time Seen by Provider: 09/26/24 20:26 Source: patient Mode of arrival: walk-in History of Present Illness HPI narrative: 28-year-old female presents to the emergency department for sore throat. It started 3 days ago. She has not been around anybody has had a sore throat and she has not had a fever. She has some bodyaches but she always has those and she has had a headache and she frequently gets headaches, though symptoms are not new for her. No cough. Related Data Home Medications ?Medication ?Instructions ?Recorded ?Confirmed fluoxetine 20 mg capsule 20 mg PO DAILY 04/17/23 04/17/23 levothyroxine 88 mcg capsule 88 mcg PO DAILY 04/17/23 01/25/24 pantoprazole 20 mg tablet,delayed 20 mg PO DAILY 04/17/23 04/17/23 release Previous Rx's ?Medication ?Instructions ?Recorded hydrocodone 5 mg-acetaminophen 325 1 tab PO Q4H PRN pain 4 days #16 05/01/23 mg tablet tabs ibuprofen 800 mg tablet 800 mg PO Q8H PRN pain 14 days #40 05/01/23 tabs cephalexin 500 mg capsule 500 mg PO Q8H 10 days #30 caps 01/25/24 hydroxyzine HCl 25 mg tablet 25 mg PO Q6H PRN itching #20 tabs 01/25/24 prednisone 20 mg tablet 60 mg (3 x 20 mg) PO DAILY 3 days 01/25/24 #9 tabs Allergies Allergy/AdvReac Type Severity Reaction Status Date / Time No Known Drug Allergies Allergy Verified 01/25/24 16:39 Opioid HPI Opioid Management Most Recent Opioid Data: Last Pain Scale 4 05/01/23 13:27 05/01/23 Review of Systems ROS Narrative A ten point review of systems is negative except as noted above. [facility] Medical History (Updated 09/26/24 @ 20:55 by Gaurang Barnett MD) History of blood transfusion (2014) ?Z92.89 - Personal history of other medical treatment (ICD-10) Depression ?F32.A - Depression, unspecified (ICD-10) Anxiety ?F41.9 - Anxiety disorder, unspecified (ICD-10) COVID-19 ?U07.1 - COVID-19 (ICD-10) Asthma ?J45.909 - Unspecified asthma, uncomplicated (ICD-10) Migraine ?G43.909 - Migraine, unspecified, not intractable, without status migrainosus (ICD-10) Hiatal hernia ?K44.9 - Diaphragmatic hernia without obstruction or gangrene (ICD-10) Nausea ?R11.0 - Nausea (ICD-10) Vomiting ?R11.10 - Vomiting, unspecified (ICD-10) GERD (gastroesophageal reflux disease) ?K21.9 - Gastro-esophageal reflux disease without esophagitis (ICD-10) Hypothyroidism ?E03.9 - Hypothyroidism, unspecified (ICD-10) Menorrhagia ?N92.0 - Excessive and frequent menstruation with regular cycle (ICD-10) Dyspareunia Request for sterilization ?Z30.2 - Encounter for sterilization (ICD-10) Surgical History (Updated 04/17/23 @ 13:48 by Diane Sanchez NP) History of esophagogastroduodenoscopy (EGD) ?Z98.890 - Other specified postprocedural states (ICD-10) H/O oral surgery ?Z98.890 - Other specified postprocedural states (ICD-10) H/O oral surgery ?Z98.890 - Other specified postprocedural states (ICD-10) Family History (Updated 04/17/23 @ 13:48 by Diane Sanchez NP) Other Family history of DVT Family history of cervical cancer Family history of coronary artery disease Family history of diabetes mellitus Family history of heart disease Family history of hypertension Family history of myocardial infarction Family history of ovarian cancer Social History Within the past year, how often did you have a drink containing alcohol: monthly or less Smoking status: Never smoker Previous occupational history: Teacher aid Highest level of school completed/degree received: high school graduate Little interest or pleasure in doing things: not at all Feeling down, depressed, or hopeless: not at all Exam Narrative Exam Narrative: Nurses note and vital signs reviewed and patient is not hypoxic. General: The patient appears well and in no apparent distress. Patient is resting comfortably on cart. Skin: Warm, dry, no pallor noted. There is no rash noted. Head: Normocephalic, atraumatic Eye: Normal conjunctiva, no drainage Ears, Nose, Mouth, and Throat: oral mucosa is moist. Nares patent. Uvula midline. Minimal erythema of the pharynx. No exudate. Cardiovascular: Regular Rate and Rhythm Respiratory: Patient is in no distress, no accessory muscle use, lungs are clear to auscultation, no wheezing, rales or rhonchi Back: non-tender GI: Soft and nontender Musculoskeletal: The patient has no evidence of calf tenderness, no pitting edema, symmetrical pulses noted bilaterally Neurological: A&O, normal speech Psychiatric: Cooperative Constitutional Vital Signs, click to edit/add: Last Vital Signs Temp 98.9 F 09/26/24 20:26 Pulse 97 H 09/26/24 20:26 Resp 18 09/26/24 20:26 BP 134/86 09/26/24 20:26 Pulse Ox 97 09/26/24 20:26 O2 Del Method Room Air 09/26/24 20:26 Course Vital Signs Vital signs: Vital Signs Temperature 98.9 F 09/26/24 20:26 Pulse Rate 97 H 09/26/24 20:26 Respiratory Rate 18 09/26/24 20:26 Blood Pressure 134/86 09/26/24 20:26 Pulse Oximetry 97 09/26/24 20:26 Oxygen Delivery Method Room Air 09/26/24 20:26 Temperature 98.9 F 09/26/24 20:26 Pulse Rate 97 H 09/26/24 20:26 Respiratory Rate 18 09/26/24 20:26 Blood Pressure 134/86 09/26/24 20:26 Pulse Oximetry 97 09/26/24 20:26 Oxygen Delivery Method Room Air 09/26/24 20:26 Medical Decision Making [facility] Narrative Medical decision making narrative: Strep test is negative. My clinical impression is that she has viral pharyngitis. Antibiotic not indicated. Treatment diagnosis and follow-up were discussed with the patient. Differential Diagnosis Differential Diagnosis: Strep throat, viral pharyngitis Lab Data Lab results reviewed: Yes I reviewed the patient's lab results Labs: Lab Results 09/26/24 Range/Units 20:30 Streptococcus Screen Negative Discharge Plan Discharge Chief Complaint: Upper Respiratory Infection Clinical Impression: Viral pharyngitis Patient Disposition: Home, Self-Care Time of Disposition Decision: 20:54 Condition: Good Mode of Transportation: Private Vehicle Prescriptions / Home Meds: No Action fluoxetine 20 mg capsule 20 mg PO DAILY levothyroxine 88 mcg capsule 88 mcg PO DAILY pantoprazole 20 mg tablet,delayed release (DR/EC) 20 mg PO DAILY ibuprofen 800 mg tablet 800 mg PO Q8H PRN (Reason: pain) 14 Days Qty: 40 0RF hydrocodone-acetaminophen 5-325 mg tablet 1 tab PO Q4H PRN (Reason: pain) 4 Days Qty: 16 0RF prednisone 20 mg tablet 60 mg PO DAILY 3 Days Qty: 9 0RF cephalexin 500 mg capsule 500 mg PO Q8H 10 Days Qty: 30 0RF hydroxyzine HCl 25 mg tablet 25 mg PO Q6H PRN (Reason: itching) Qty: 20 0RF Print Language: Serbian Instructions: Pharyngitis (ED) Referrals: TORITO BRYSON [Primary Care Provider] - 1 week
[2024-09-26 20:43] LABS: Internal Control Within Normal Limits; Strep A Antigen Screen Negative
--- NOTE | 2024-09-26 21:04 | PC.NURSE ---
i gave this patient verbal and paper discharge orders and this patient voices yes to understanding these. at time of discharge this patient voices no concerns and shows no signs of distress
== END 2024-09-26 21:06 | disposition home or self-care (01) ==
PROVIDERS: Emergency Provider Emergency Medicine; PCP Nurse Practitioner
DX: J02.9 Acute pharyngitis, unspecified (principal)
CPT/HCPCS: 87070; 87880; 99283